=== PATIENT | female | born 1940 | race Caucasian/White ===

== ENCOUNTER → 2016-10-02 | Outpatient (REF) | payer MEDICARE ==
[~2016-10-02] MED LIST: /ALEN70TA; ALBU17IN2; BABY81CH; FLUTICASONE PROPIONATE; MIRALAX; NITR0.4S; PRIL20CA
[2016-10-02 11:03] LABS: MEAN CORPUSCULAR HEMOGLOBIN 29.3 pg (27.0-33.0); MEAN CORPUSCULAR HGB CONC 32.7 g/dl (32.0-36.5); MEAN CORPUSCULAR VOLUME 89.5 fl (80.0-96.0); RED CELL DISTRIBUTION WIDTH 12.8 % (11.5-14.5); WHITE BLOOD COUNT 7.4 K/mm3 (4.0-10.0)
[2016-10-02 11:20] LABS: ALBUMIN 3.5 GM/DL (3.2-5.2); ALBUMIN/GLOBULIN RATIO 1.21 (1.00-1.93); ALKALINE PHOSPHATASE 106 U/L (45-117); ALT/SGPT 18 U/L (12-78); ANION GAP 6 MEQ/L (8-16); AST/SGOT 15 U/L (15-37); BILIRUBIN,TOTAL 0.8 MG/DL (0.2-1.0); BLOOD UREA NITROGEN 13 MG/DL (7-18); CALCIUM LEVEL 8.7 MG/DL (8.8-10.2); CARBON DIOXIDE LEVEL 33 MEQ/L (21-32); CHLORIDE LEVEL 98 MEQ/L (98-107); CREATININE FOR GFR 0.57 MG/DL (0.55-1.02); GLOMERULAR FILTRATION RATE > 60.0 (>39); GLUCOSE, FASTING 89 MG/DL (83-110); POTASSIUM SERUM 3.9 MEQ/L (3.5-5.1); SODIUM LEVEL 137 MEQ/L (136-145); TOTAL PROTEIN 6.4 GM/DL (6.4-8.2)
== END ==
LOC: M SFHCCLAY 08:38
PROVIDERS: ATTEND Family Medicine
DX: I10 Essential (primary) hypertension (principal); J45.909 Unspecified asthma, uncomplicated

== ENCOUNTER → 2017-07-23 | Outpatient (CLI) | payer MEDICARE ==
--- NOTE | 2017-07-23 11:21 | REP ---
Digital screening bilateral mammography with CAD: Comparison mammography is reviewed from July 17, 2016, July 12, 2015, and July 08, 2014. Mammographic findings: There is a 7 mm microlobulated developing nodule projecting in the lateral aspect of the right mid breast which merits further evaluation. Breast parenchyma is otherwise predominately fat replaced bilaterally. No other dominant density is seen. No spiculation or microcalcification is observed. No worrisome skin change is seen. Impression: BIRADS category 0 incomplete. Additional imaging and/or prior images needed. BI-RADS/ACR category 0 mammogram, incomplete. Additional imaging and/or prior mammograms for comparison. There is a 6 mm developing nodular density in the right breast lateral aspect at approximately 9 o'clock which merits further evaluation. Diagnostic right breast mammography and focused right breast sonography recommended. This mammogram was interpreted with the aid of an FDA-approved computer-aided detection system. The patient states she had a clinical breast exam in July 15, 2017 The patient letter being requested is m0.
== END ==
LOC: M WHC 09:10
PROVIDERS: ATTEND Nurse Practitioner Women's Health
DX: Z01.419 Encounter for gynecological examination (general) (routine) without abnormal findings (principal); Z12.31 Encounter for screening mammogram for malignant neoplasm of breast; R92.8 Other abnormal and inconclusive findings on diagnostic imaging of breast; N63.11 Unspecified lump in the right breast, upper outer quadrant
CPT/HCPCS: G0101; G0202

== ENCOUNTER → 2017-07-24 | Outpatient (CLI) | payer MEDICARE ==
--- NOTE | 2017-07-24 15:54 | REP ---
Mammography study from July 23, 2017 was BI-RADS category 0 because of a possible developing nodular density 6 mm in diameter in the right lateral breast. Diagnostic imaging was recommended. Comparison is also made with prior mammography from July 17, 2016 and July 12, 2015. Mammographic findings: Magnified focal spot compression CC, MLO, and true ML views of the right breast confirm the presence of a nodular density. This has a hilar notch and kidney jaimes shape consistent with a benign intramammary lymph node. It is located laterally and just inferior to the plane of the nipple in the inferolateral quadrant of the right breast. No other suspicious mammographic finding. Sonographic findings: The right breast is scanned from 5 o'clock to 10 o'clock laterally. Normal fairly homogeneous fibroglandular background echotexture is seen. No cyst, mass or acoustic shadowing is seen. Impression: BI-RADS/ACR category 2 mammogram. Benign finding(s). Routine annual screening mammography (for women over age 40). BI-RADS category 2 benign right breast imaging. Intramammary lymph node is seen laterally in the right breast on magnified focal spot compression images. Repeat annual screening mammography recommended. This mammogram was interpreted with the aid of an FDA-approved computer-aided detection system. The patient states she/he had a clinical breast exam in June of 2017. The patient letter being requested is m1. Signed by Valentino Posadas MD 07/24/2017 04:10 P
== END ==
LOC: M RAD 14:05
PROVIDERS: ATTEND Nurse Practitioner Women's Health
DX: Z12.31 Encounter for screening mammogram for malignant neoplasm of breast (principal); R92.8 Other abnormal and inconclusive findings on diagnostic imaging of breast
CPT/HCPCS: 76642; G0206

== ENCOUNTER 2017-10-01 19:20 | Emergency (ER) | payer MEDICARE ==
[2017-10-01] MEDS: BUPIVACAINE HCL 0.5% 10 ML VIAL SC ×2 (21:35)
[2017-10-01] MEDS: LIDOCAINE W/EPINEPHRINE 1% 20ML VIAL SC ×2 (21:35)
[2017-10-01] MEDS: TETANUS/DIPHTHERIA TOX ADSORB ADULT 0.5ML SYR/VIAL (90714) IM ×2 (22:29)
[2017-10-01] MEDS: traMADol 50 MG TAB (BULK 4 TAB ED) PO ×2 (22:45)
== END 2017-10-01 22:53 | disposition home or self-care (01) ==
LOC: M ED 19:20
DX: S01.111A Laceration without foreign body of right eyelid and periocular area, initial encounter (principal); S80.11XA Contusion of right lower leg, initial encounter; W00.9XXA Unspecified fall due to ice and snow, initial encounter; Y92.481 Parking lot as the place of occurrence of the external cause; Y93.9 Activity, unspecified; M85.88 Other specified disorders of bone density and structure, other site; Z79.899 Other long term (current) drug therapy; Z88.6 Allergy status to analgesic agent; Z88.0 Allergy status to penicillin
CPT/HCPCS: 90714

== ENCOUNTER → 2018-05-20 | Outpatient (CLI) | payer MEDICARE ==
[2018-05-20 07:03] LABS: HEMATOCRIT 40.2 % (36.0-47.0); HEMOGLOBIN 13.5 g/dl (12.0-15.5); MEAN CORPUSCULAR HEMOGLOBIN 29.6 pg (27.0-33.0); MEAN CORPUSCULAR HGB CONC 33.6 g/dl (32.0-36.5); MEAN CORPUSCULAR VOLUME 88.2 fl (80.0-96.0); PLATELET COUNT, AUTOMATED 372 10^3/uL (150-450); RED BLOOD COUNT 4.56 10^6/uL (4.00-5.40); WHITE BLOOD COUNT 7.3 10^3/uL (4.0-10.0)
[2018-05-20 07:34] LABS: ALBUMIN 3.7 GM/DL (3.2-5.2); ALBUMIN/GLOBULIN RATIO 1.28 (1.00-1.93); ALKALINE PHOSPHATASE 110 U/L (45-117); ALT/SGPT 19 U/L (12-78); ANION GAP 9 MEQ/L (8-16); AST/SGOT 15 U/L (7-37); BILIRUBIN,TOTAL 0.6 MG/DL (0.2-1.0); BLOOD UREA NITROGEN 14 MG/DL (7-18); CALCIUM LEVEL 9.1 MG/DL (8.8-10.2); CARBON DIOXIDE LEVEL 31 MEQ/L (21-32); CHLORIDE LEVEL 99 MEQ/L (98-107); CHOLESTEROL LEVEL 236 MG/DL (<200); CREATININE FOR GFR 0.68 MG/DL (0.55-1.30); GLOMERULAR FILTRATION RATE > 60.0 (>39); GLUCOSE, FASTING 91 MG/DL (70-100); HDL CHOLESTEROL 54 MG/DL (>40); LDL CHOLESTEROL 140 MG/DL (<100); NON-HDL-C 182 MG/DL; POTASSIUM SERUM 4.2 MEQ/L (3.5-5.1); SODIUM LEVEL 139 MEQ/L (136-145); TOTAL PROTEIN 6.6 GM/DL (6.4-8.2); TRIGLYCERIDES LEVEL 212 MG/DL (<150)
== END ==
LOC: M LAB 06:29
DX: J45.909 Unspecified asthma, uncomplicated (principal); E78.00 Pure hypercholesterolemia, unspecified; I10 Essential (primary) hypertension
CPT/HCPCS: 84443

== ENCOUNTER 2018-07-08 06:12 | Emergency (ER) | payer MEDICARE ==
[2018-07-08 06:47] LABS: BASO % 0.5 % (0.0-1.0); EOS # 0.1 10^3/uL (0.0-0.50); EOS % 1.2 % (0.0-3.0); HEMATOCRIT 39.6 % (36.0-47.0); HEMOGLOBIN 13.2 g/dl (12.0-15.5); IMMATURE GRANULOCYTE % 0.5 % (0-3.0); LYMPH # 1.5 10^3/uL (1.5-4.5); LYMPH % 18.7 % (24.0-44.0); MEAN CORPUSCULAR HEMOGLOBIN 29.6 pg (27.0-33.0); MEAN CORPUSCULAR HGB CONC 33.3 g/dl (32.0-36.5); MEAN CORPUSCULAR VOLUME 88.8 fl (80.0-96.0); MONO # 0.7 10^3/uL (0.0-0.8); MONO % 8.4 % (0.0-5.0); NEUTROPHILS # 5.8 10^3/uL (1.8-7.7); NEUTROPHILS % 70.7 % (36.0-66.0); PLATELET COUNT, AUTOMATED 347 10^3/uL (150-450); RED BLOOD COUNT 4.46 10^6/uL (4.00-5.40); RED CELL DISTRIBUTION WIDTH 13.1 % (11.5-14.5); WHITE BLOOD COUNT 8.1 10^3/uL (4.0-10.0)
[2018-07-08 07:13] LABS: ANION GAP 8 MEQ/L (8-16); BLOOD UREA NITROGEN 15 MG/DL (7-18); CALCIUM LEVEL 9.1 MG/DL (8.8-10.2); CARBON DIOXIDE LEVEL 28 MEQ/L (21-32); CHLORIDE LEVEL 100 MEQ/L (98-107); CPK CREATINE PHOSPHOKINASE 96 U/L (26-192); GLOMERULAR FILTRATION RATE > 60.0 (>39); GLUCOSE, FASTING 103 MG/DL (70-100); NT-PRO BNP 243 PG/ML (<450); POTASSIUM SERUM 3.9 MEQ/L (3.5-5.1); SODIUM LEVEL 136 MEQ/L (136-145); TROPONIN I < 0.02 NG/ML (< 0.10)
[2018-07-08] MEDS ORDERED: ISOVUE-370 76% 100ML VIAL (Q9967) As Ordered (08:06)
[2018-07-08 13:00] LABS: CPK CREATINE PHOSPHOKINASE 123 U/L (26-192); MB/CK RELATIVE INDEX 2.36 (< OR =4); TROPONIN I < 0.02 NG/ML (< 0.10)
== END 2018-07-08 13:48 | disposition home or self-care (01) ==
LOC: M ED 06:12
DX: R00.2 Palpitations (principal); R06.02 Shortness of breath; I10 Essential (primary) hypertension; E78.5 Hyperlipidemia, unspecified; K21.9 Gastro-esophageal reflux disease without esophagitis; J45.909 Unspecified asthma, uncomplicated; Z87.891 Personal history of nicotine dependence; Z88.0 Allergy status to penicillin; Z88.6 Allergy status to analgesic agent; Z79.899 Other long term (current) drug therapy; Z79.51 Long term (current) use of inhaled steroids
CPT/HCPCS: Q9967

== ENCOUNTER → 2018-07-24 | Outpatient (CLI) | payer MEDICARE | LOC: M WHC 09:40 | DX: Z12.31 Encounter for screening mammogram for malignant neoplasm of breast (principal); N63.21 Unspecified lump in the left breast, upper outer quadrant; Z80.42 Family history of malignant neoplasm of prostate | CPT/HCPCS: 77067 ==

== ENCOUNTER → 2018-08-20 | Outpatient (CLI) | payer MEDICARE ==
[~2018-08-20] MED LIST changes: +CALTTAB5 PO; +HYDR25TAB; +LATA5OPD; +MULT1CHW39 PO; +SERT-155; +STOO100C PO
[2018-08-20 10:52] LABS: FREE T4 0.78 NG/DL (0.76-1.46); THYROID STIMULATING HORMONE 4.32 uIU/ML (0.358-3.740)
== END ==
LOC: M LAB 09:52
PROVIDERS: ATTEND Family Medicine
DX: R79.89 Other specified abnormal findings of blood chemistry (principal)

== ENCOUNTER → 2018-11-06 | Outpatient (CLI) | payer MEDICARE ==
[2018-11-06 11:50] LABS: BLOOD UREA NITROGEN 15 MG/DL (7-18); CALCIUM LEVEL 9.1 MG/DL (8.8-10.2); CARBON DIOXIDE LEVEL 32 MEQ/L (21-32); CHLORIDE LEVEL 98 MEQ/L (98-107); CREATININE FOR GFR 0.71 MG/DL (0.55-1.30); FREE T4 0.91 NG/DL (0.76-1.46); GLOMERULAR FILTRATION RATE > 60.0 (>39); GLUCOSE, FASTING 86 MG/DL (70-100); POTASSIUM SERUM 4.9 MEQ/L (3.5-5.1); SODIUM LEVEL 137 MEQ/L (136-145)
== END ==
LOC: M LAB 10:17
PROVIDERS: ATTEND Family Medicine
DX: I10 Essential (primary) hypertension (principal); L65.9 Nonscarring hair loss, unspecified

== ENCOUNTER → 2019-06-12 | Outpatient (CLI) | payer MEDICARE ==
[~2019-06-12] MED LIST changes: +LATA0.0013; -LATA5OPD; +MM S100C PO; -MULT1CHW39 PO; +MULT200T7 PO; -SERT-155; +SERT50TA29; -STOO100C PO
[2019-06-12 08:48] LABS: HEMOGLOBIN 13.5 g/dl (12.0-15.5); MEAN CORPUSCULAR HEMOGLOBIN 29.9 pg (27.0-33.0); MEAN CORPUSCULAR HGB CONC 32.9 g/dl (32.0-36.5); MEAN CORPUSCULAR VOLUME 90.7 fl (80.0-96.0); PLATELET COUNT, AUTOMATED 375 10^3/uL (150-450); RED BLOOD COUNT 4.52 10^6/uL (4.00-5.40); WHITE BLOOD COUNT 6.7 10^3/uL (4.0-10.0)
[2019-06-12 09:19] LABS: ALBUMIN 3.8 GM/DL (3.2-5.2); ALT/SGPT 21 U/L (12-78); BILIRUBIN,TOTAL 0.9 MG/DL (0.2-1.0); BLOOD UREA NITROGEN 13 MG/DL (7-18); CALCIUM LEVEL 9.4 MG/DL (8.8-10.2); CARBON DIOXIDE LEVEL 32 MEQ/L (21-32); CHLORIDE LEVEL 103 MEQ/L (98-107); CHOLESTEROL LEVEL 253 MG/DL (<200); CHOLESTEROL RISK RATIO 4.015 (<5); CREATININE FOR GFR 0.73 MG/DL (0.55-1.30); GLOMERULAR FILTRATION RATE > 60.0 (>39); GLUCOSE, FASTING 99 MG/DL (70-100); HDL CHOLESTEROL 63 MG/DL (>40); LDL CHOLESTEROL 153 MG/DL (<100); NON-HDL-C 190 MG/DL; POTASSIUM SERUM 4.4 MEQ/L (3.5-5.1); SODIUM LEVEL 138 MEQ/L (136-145); TOTAL PROTEIN 7.3 GM/DL (6.4-8.2); TRIGLYCERIDES LEVEL 186 MG/DL (<150)
== END ==
LOC: M LAB 08:15
PROVIDERS: ATTEND Family Medicine
DX: J45.909 Unspecified asthma, uncomplicated (principal); Z79.899 Other long term (current) drug therapy

== ENCOUNTER → 2019-06-18 | Outpatient (CLI) | payer MEDICARE ==
--- NOTE | 2019-06-18 12:49 | REP ---
LEFT BREAST MAMMOGRAM WITH TOMOSYNTHESIS, LEFT BREAST ULTRASOUND: HISTORY: Pain and tenderness lateral left breast. No family history of breast cancer. Tyrer-Cuzick lifetime risk of breast cancer 1.7%. MLO and CC view of the left breast are performed with tomosynthesis. Comparison made with prior studies, most recent of which is 07/24/2018. Breast parenchyma is predominantly fatty replaced. No mass or clustered microcalcifications are seen. Real-time sonographic evaluation of the left breast performed in the region of pain and tenderness. No cystic or solid nodule is seen. IMPRESSION: BIRADS 1: BI-RADS/ACR category 1 mammogram. Negative Mammogram. ACR 1 negative mammogram left breast with negative left breast ultrasound. No mass or clustered microcalcifications. No mass seen mammographically or sonographically laterally in the left breast in the region of pain and tenderness. Recommend followup screening mammography right breast at the 1 year interval since the prior exam, which would be 07/24/2019 or shortly thereafter. This mammogram was interpreted with the aid of an FDA-approved computer-aided detection system. The patient states he/she had a clinical breast exam in 05/2019. The patient letter being requested is M2. Electronically Signed by Dilshad Urabn MD 06/20/2019 10:50 A
== END ==
LOC: M RAD 09:44
PROVIDERS: ATTEND Family Medicine
DX: N64.4 Mastodynia (principal)
CPT/HCPCS: 76642; 77065; G0279

== ENCOUNTER → 2019-09-08 | Outpatient (CLI) | payer MEDICARE ==
--- NOTE | 2019-09-08 16:13 | REPMRS ---
Patient History The patient states she had a clinical breast exam in August 2019.Family history of prostate cancer at age 50 or over in brother. Digital Woman Screen Mammo: September 08, 2019 - Exam #: [id number] Bilateral CC and MLO view(s) were taken. Technologist: Candace Ibrahim, Technologist Prior study comparison: June 18, 2019, left breast digital mammo diagnostic unilateral, performed at [facility]. July 24, 2018, bilateral digital woman screen mammo performed at [facility]. July 23, 2017, digital woman screen mammo performed at [facility]. July 17, 2016, digital woman screen mammo performed at [facility]. FINDINGS: There are scattered fibroglandular densities. There has been no change in the appearance of the mammogram from the prior studies. There is a mild amount of scattered fibroglandular density which is fairly symmetric. There is no interval development of dominant mass, architectural distortion, or grouped microcalcification suggestive of malignancy. 3-D tomosynthesis shows no additional findings. Assessment: BI-RADS/ACR category 1 mammogram. Negative Mammogram. Recommendation Routine screening mammogram of both breasts in 1 year (for women over age 40). This patient's Lifetime Breast Cancer Risk is estimated at 1.4 %. This mammogram was interpreted with the aid of an FDA-approved computer-aided dectection system. Electronically Signed By: Sd Posadas MD 09/08/19 [id number]
== END ==
LOC: M WHC 10:16
PROVIDERS: ATTEND Nurse Practitioner Women's Health
DX: Z12.31 Encounter for screening mammogram for malignant neoplasm of breast (principal); Z80.42 Family history of malignant neoplasm of prostate

== ENCOUNTER → 2019-12-28 | Outpatient (CLI) | payer MEDICARE ==
--- NOTE | 2019-12-28 17:21 | REP ---
RIGHT KNEE, FIVE VIEWS: Five views, right knee performed. No acute fracture or dislocation is seen. There is diffuse chondrocalcinosis, more so in the lateral joint compartment. There is minimal narrowing of the medial and lateral joint compartments. There is moderate narrowing of the lateral patellofemoral joint with subchondral sclerosis. There is mild diffuse spurring of the patella. There is spurring of the lateral femoral condyle. IMPRESSION: Degenerative changes with no acute fracture or dislocation. Electronically Signed by Dilshad Urban MD 12/29/2019 09:41 A
== END ==
LOC: M CLY 15:20
PROVIDERS: ATTEND Family Medicine
DX: M17.11 Unilateral primary osteoarthritis, right knee (principal); M11.261 Other chondrocalcinosis, right knee; M25.561 Pain in right knee

== ENCOUNTER → 2020-05-18 | Outpatient (CLI) | payer MEDICARE ==
[~2020-05-18] MED LIST changes: +E-Z-GAS II EFFERVESCENT PACKET (SODIUM BICARB./CITRIC ACID/SIMETHICONE) As Ordered ONE; +E-Z-HD 98% w/w 340GM SUSP BTL As Ordered ONE; +E-Z-PAQUE 96% w/w SUSP 176GM BTL As Ordered ONE
--- NOTE | 2020-05-26 07:39 | REP ---
ESOPHAGRAM This procedure was performed by SUISE Vega, under the direct supervision of Dr. Urban. The images were reviewed with Dr. Urban prior to dictation. A single PA chest x-ray is submitted as a laborer cheesemaking film. The superior mediastinal structures are midline. The heart size is within normal limits, and the lungs appear clear. A surgical staple is visualized in the right upper quadrant. Liquid barium and gas-producing granules were given in the erect position, as well as liquid barium in the prone oblique positions in order to perform a double-contrast esophagram examination. The oral and pharyngeal stages of deglutition were unremarkable. Esophageal transport is prompt and efficient, and there is no esophagitis, stricture, or mucosal ring. Gastroesophageal reflux was not visualized during this exam. There is a small hiatal hernia. IMPRESSION: 1. Small hiatal hernia. 0.4 minutes of fluoroscopy time was utilized for this procedure. This procedure has been dictated by SUSIE Vega with Dr. Urban. [facility]
== END ==
LOC: M RAD 08:17
PROVIDERS: ATTEND Family Medicine
DX: R13.10 Dysphagia, unspecified (principal)

== ENCOUNTER → 2020-05-26 | Outpatient (CLI) | payer MEDICARE ==
[~2020-05-26] MED LIST changes: -E-Z-GAS II EFFERVESCENT PACKET (SODIUM BICARB./CITRIC ACID/SIMETHICONE) As Ordered ONE; -E-Z-HD 98% w/w 340GM SUSP BTL As Ordered ONE; -E-Z-PAQUE 96% w/w SUSP 176GM BTL As Ordered ONE
--- NOTE | 2020-06-02 06:15 | REP ---
RIGHT KNEE SERIES: 5-VIEWS HISTORY: Progressive right knee pain. History of recent falls. COMPARISON: Right knee radiographs 12/28/2019. FINDINGS: Chondrocalcinosis is again noted in the lateral compartment. There is mild lateral compartment spur formation. There is patellofemoral narrowing and osteoarthritic spurring as well. There is some sclerosis associated with this. There is a small ossific density inferior to the patella on the lateral radiograph unchanged from the prior study. This is not seen on the other views. Loose body is felt to be unlikely. It projects over the infrapatellar fat and there is no evidence of joint effusion. IMPRESSION: Mild lateral and patellofemoral compartment osteoarthritis. Diffuse osteopenia. Chondrocalcinosis. No acute bony abnormality. MTDD
== END ==
LOC: M CLY 13:55
PROVIDERS: ATTEND Physician Assistant
DX: M17.11 Unilateral primary osteoarthritis, right knee (principal); M85.88 Other specified disorders of bone density and structure, other site; M11.261 Other chondrocalcinosis, right knee
CPT/HCPCS: 73564; G0463

== ENCOUNTER → 2020-09-09 | Outpatient (CLI) | payer MEDICARE ==
[~2020-09-09] MED LIST changes: +HYDR-3490; -HYDR25TAB
--- NOTE | 2020-09-09 14:03 | REPMRS ---
Patient History The patient states she has not had a clinical breast exam in over a year. Family history of prostate cancer at age 50 or over in brother. 3D TOMOSYNTHESIS WAS PERFORMED. [facility]%. Volpara breast density a. Digital Woman Screen Mammo: September 09, 2020 - Exam #: [id number] Bilateral CC and MLO view(s) were taken. Technologist: Anabel Oleary, Technologist Prior study comparison: September 08, 2019, bilateral digital woman screen mammo performed at [facility]. June 18, 2019, left breast digital mammo diagnostic unilateral, performed at [facility]. FINDINGS: There are scattered fibroglandular densities. There has been no change in the appearance of the mammogram from the prior studies. There is a mild amount of residual fibroglandular tissue which is fairly symmetric. There is no interval development of dominant mass, architectural distortion, or clustered microcalcification suggestive of malignancy. Assessment: BI-RADS/ACR category 1 mammogram. Negative Mammogram. Recommendation Routine screening mammogram in 1 year (for women over age 40). This mammogram was interpreted with the aid of an FDA-approved computer-aided dectection system. Electronically Signed By: Dilshad Urban MD 09/09/20 [id number]
== END ==
LOC: M WHC 12:53
PROVIDERS: ATTEND Nurse Practitioner Women's Health
DX: Z12.31 Encounter for screening mammogram for malignant neoplasm of breast (principal)

== ENCOUNTER → 2020-11-10 | Outpatient (REF) | payer MEDICARE ==
[2020-11-11 11:33] LABS: HEMATOCRIT 37.9 % (36.0-47.0); HEMOGLOBIN 12.4 g/dl (12.0-15.5); MEAN CORPUSCULAR HEMOGLOBIN 30.1 pg (27.0-33.0); MEAN CORPUSCULAR HGB CONC 32.7 g/dl (32.0-36.5); PLATELET COUNT, AUTOMATED 383 10^3/uL (150-450); RED BLOOD COUNT 4.12 10^6/uL (4.00-5.40); WHITE BLOOD COUNT 7.7 10^3/uL (4.0-10.0)
[2020-11-11 11:59] LABS: ALBUMIN 3.7 GM/DL (3.2-5.2); ALT/SGPT 16 U/L (12-78); BILIRUBIN,TOTAL 0.6 MG/DL (0.2-1.0); BLOOD UREA NITROGEN 16 MG/DL (7-18); CALCIUM LEVEL 9.2 MG/DL (8.8-10.2); CARBON DIOXIDE LEVEL 31 MEQ/L (21-32); CHLORIDE LEVEL 98 MEQ/L (98-107); CREATININE FOR GFR 0.61 MG/DL (0.55-1.30); GLOMERULAR FILTRATION RATE > 60.0 (>32); GLUCOSE, FASTING 98 MG/DL (70-100); SODIUM LEVEL 133 MEQ/L (136-145); TOTAL PROTEIN 6.6 GM/DL (6.4-8.2)
== END ==
LOC: M SFHCCLAY 14:28
PROVIDERS: ATTEND Family Medicine
DX: J45.909 Unspecified asthma, uncomplicated (principal); I10 Essential (primary) hypertension
CPT/HCPCS: 80053; 85027; G0463

== ENCOUNTER → 2021-01-09 | Outpatient (CLI) | payer MEDICARE ==
--- NOTE | 2021-01-09 13:44 | REP ---
INDICATION: RT CAROTID BRUIT COMPARISON: None. TECHNIQUE: Real-time ultrasound evaluation and duplex Doppler interrogation of the extracranial carotid vasculature is performed. FINDINGS: There is mild plaquing and narrowing in both carotid bulbs extending into the internal and external carotid arteries. Luminal narrowing is less than 50%. There is no evidence of hemodynamically significant stenosis of either internal carotid artery. Normal flow velocities are seen. The vertebral arteries demonstrate normal direction of flow. RIGHT LEFT Peak systolic velocity ICA 41.7 cm/s 55.3 cm/s End diastolic velocity ICA 10.7 cm/s 16.3 cm/s Peak systolic velocity CCA 87.9 cm/s 85.9cm/s Peak systolic velocity ECA 46.7 cm/s 45.0 cm/s ICA/CCA ratio 0.90 0.82 IMPRESSION: Bilateral luminal narrowing of the internal carotid arteries less than 50%. No evidence of hemodynamically significant stenosis. <Electronically signed by Dilshad Urban > 01/09/21 [id number]
== END ==
LOC: M RAD 12:09
PROVIDERS: ATTEND Family Medicine
DX: R09.89 Other specified symptoms and signs involving the circulatory and respiratory systems (principal)

== ENCOUNTER → 2021-10-31 | Outpatient (CLI) | payer MEDICARE | LOC: M WHC 12:41 | PROVIDERS: ATTEND Nurse Practitioner Women's Health | DX: Z12.31 Encounter for screening mammogram for malignant neoplasm of breast (principal) ==

== ENCOUNTER 2021-12-14 12:59 | Emergency (ER) | payer MEDICARE ==
[~2021-12-14] VITALS: Ht 162.6 cm; Wt 65.9 kg
[2021-12-14 13:56] LABS: BASO # 0.1 10^3/uL (0.0-0.2); BASO % 0.6 % (0.0-1.0); EOS # 0.2 10^3/uL (0.0-0.5); EOS % 1.9 % (0.0-3.0); HEMATOCRIT 38.9 % (36.0-47.0); LYMPH % 21.5 % (24.0-44.0); MEAN CORPUSCULAR HEMOGLOBIN 30.2 pg (27.0-33.0); MEAN CORPUSCULAR HGB CONC 33.4 g/dl (32.0-36.5); MEAN CORPUSCULAR VOLUME 90.5 fl (80.0-96.0); MONO # 0.7 10^3/uL (0.0-0.8); MONO % 7.3 % (2.0-8.0); NEUTROPHILS # 6.4 10^3/uL (1.5-8.5); NEUTROPHILS % 68.4 % (36.0-66.0); PLATELET COUNT, AUTOMATED 401 10^3/uL (150-450); WHITE BLOOD COUNT 9.3 10^3/uL (4.0-10.0)
[2021-12-14 14:06] LABS: CK-MB VALUE MASS 2.5 NG/ML (<3.6); MB/CK RELATIVE INDEX 3.62 (< OR =4)
[2021-12-14 14:09] LABS: INR 0.94
[2021-12-14 14:10] LABS: PARTIAL THROMBOPLASTIN TIME 29.8 SECONDS (25.9-37.0)
[2021-12-14 14:13] LABS: ALBUMIN 3.6 GM/DL (3.2-5.2); ALT/SGPT 22 U/L (12-78); BILIRUBIN,DIRECT 0.1 MG/DL (0.0-0.2); BILIRUBIN,TOTAL 0.5 MG/DL (0.2-1.0); BLOOD UREA NITROGEN 13 MG/DL (7-18); CALCIUM LEVEL 9.2 MG/DL (8.8-10.2); CARBON DIOXIDE LEVEL 29 MEQ/L (21-32); CHLORIDE LEVEL 99 MEQ/L (98-107); CREATININE FOR GFR 0.68 MG/DL (0.55-1.30); GLOMERULAR FILTRATION RATE > 60.0 (>32); GLUCOSE, FASTING 127 MG/DL (70-100); NT-PRO BNP 94 PG/ML (<450); POTASSIUM SERUM 3.7 MEQ/L (3.5-5.1); SODIUM LEVEL 133 MEQ/L (136-145); TOTAL PROTEIN 6.7 GM/DL (6.4-8.2)
[2021-12-14] MEDS ORDERED: ISOVUE-370 76% 100ML VIAL As Ordered ONE (15:16)
[2021-12-14] MEDS ORDERED: GI COCKTAIL 50ML BTL(HYOSCYAMINE/MAALOX/LIDOCAINE VISCOUS)(1:3:1) PO ONE (15:40)
[2021-12-14] MEDS ORDERED: HEPARIN DRIP 25,000 UNITS in IV 1 EA IV SCH (15:45)
[2021-12-14] MEDS ORDERED: ASPIRIN 81 MG CHEW TABLET PO ONE (15:45)
[2021-12-14] MEDS ORDERED: NITROGLYCERIN 0.4 MG SUBL TABLET SL PRN (15:45)
[2021-12-14] MEDS ORDERED: HEPARIN SOD (PORCINE) 5000UNITS/ML 1ML VIAL/SYRINGE IV ONE (15:45)
[2021-12-14 15:46] LABS: CK-MB VALUE MASS 2.1 NG/ML (<3.6); MB/CK RELATIVE INDEX 3.04 (< OR =4)
[2021-12-14] MEDS ORDERED: NITROGLYCERIN 2% OINT 1 GM *U/D* PKT TOP ONE (16:00)
[2021-12-14 16:22] LABS: RSV AMPLIFICATION NEGATIVE (NEGATIVE)
[2021-12-14 19:46] VITALS: BP 153/66
== END 2021-12-14 20:05 | disposition short-term general hospital (02) ==
LOC: M ED 12:59
DX: I20.0 Unstable angina (principal); R94.31 Abnormal electrocardiogram [ECG] [EKG]; I10 Essential (primary) hypertension; F41.8 Other specified anxiety disorders; F32.A Depression, unspecified; J45.909 Unspecified asthma, uncomplicated; K44.9 Diaphragmatic hernia without obstruction or gangrene; K21.9 Gastro-esophageal reflux disease without esophagitis; F17.200 Nicotine dependence, unspecified, uncomplicated; Z88.0 Allergy status to penicillin; Z88.6 Allergy status to analgesic agent
CPT/HCPCS: 71045; 71275; 80048; 80076; 82550; 82553; 83880; 84443; 84484; 85025; 85610; 85730; 87631; 93005; 93041; 94760; 96374; 99285; J1644; Q9967

== ENCOUNTER 2022-06-11 09:59 | Emergency (ER) | payer OTHER, MEDICARE ==
[~2022-06-11] VITALS: Ht 162.6 cm; Wt 64.1 kg
[2022-06-11] MEDS ORDERED: ACETAMINOPHEN 325 MG TAB PO ONE (10:30)
[2022-06-11 11:14] VITALS: BP 174/94
[2022-06-11 11:20] LABS: BASO # 0.1 10^3/uL (0.0-0.2); BASO % 0.5 % (0.0-1.0); EOS % 0.3 % (0.0-3.0); HEMATOCRIT 37.2 % (36.0-47.0); HEMOGLOBIN 12.7 g/dl (12.0-15.5); LYMPH # 1.5 10^3/uL (1.5-5.0); LYMPH % 14.1 % (24.0-44.0); MEAN CORPUSCULAR HEMOGLOBIN 30.7 pg (27.0-33.0); MEAN CORPUSCULAR HGB CONC 34.1 g/dl (32.0-36.5); MEAN CORPUSCULAR VOLUME 89.9 fl (80.0-96.0); MONO # 0.8 10^3/uL (0.0-0.8); MONO % 7.6 % (2.0-8.0); NEUTROPHILS # 7.9 10^3/uL (1.5-8.5); NEUTROPHILS % 76.3 % (36.0-66.0); PLATELET COUNT, AUTOMATED 391 10^3/uL (150-450); RED BLOOD COUNT 4.14 10^6/uL (4.00-5.40); WHITE BLOOD COUNT 10.4 10^3/uL (4.0-10.0)
[2022-06-11 11:30] LABS: INR 0.9; PARTIAL THROMBOPLASTIN TIME 27.6 SECONDS (24.8-34.2); PROTHROMBIN TIME 12.3 SECONDS (12.5-14.5)
[2022-06-11] MEDS ORDERED: CLOP75TA2 PO (11:40)
[2022-06-11 11:52] LABS: RSV AMPLIFICATION NEGATIVE (NEGATIVE)
[2022-06-11 12:02] LABS: ALBUMIN 4.1 GM/DL (3.2-5.2); ALT/SGPT 24 U/L (12-78); BLOOD UREA NITROGEN 12 MG/DL (7-18); CALCIUM LEVEL 9.1 MG/DL (8.8-10.2); CARBON DIOXIDE LEVEL 28 MEQ/L (21-32); CHLORIDE LEVEL 97 MEQ/L (98-107); CREATININE FOR GFR 0.57 MG/DL (0.55-1.30); GLOMERULAR FILTRATION RATE > 60.0 (>32); GLUCOSE, FASTING 132 MG/DL (70-100); POTASSIUM SERUM 3.3 MEQ/L (3.5-5.1); SODIUM LEVEL 132 MEQ/L (136-145); TOTAL PROTEIN 7.2 GM/DL (6.4-8.2)
[2022-06-11 15:07] LABS: CPK CREATINE PHOSPHOKINASE 155 U/L (26-192)
== END 2022-06-11 12:42 | disposition short-term general hospital (02) ==
LOC: M ED 09:59 → EDBD 09:59 → M ED 12:42
DX: S20.211A Contusion of right front wall of thorax, initial encounter (principal); S12.101A Unspecified nondisplaced fracture of second cervical vertebra, initial encounter for closed fracture; I10 Essential (primary) hypertension; V49.50XA Passenger injured in collision with unspecified motor vehicles in traffic accident, initial encounter; Z88.0 Allergy status to penicillin; Z88.6 Allergy status to analgesic agent; Z79.83 Long term (current) use of bisphosphonates; Z79.899 Other long term (current) drug therapy; Y99.9 Unspecified external cause status; Y92.9 Unspecified place or not applicable; Y93.9 Activity, unspecified

== ENCOUNTER → 2022-11-01 | Outpatient (CLI) | payer MEDICARE ==
[~2022-11-01] MED LIST changes: +CLOP75TA2 PO
== END ==
LOC: M WHC 10:23
PROVIDERS: ATTEND Family Medicine
DX: Z12.31 Encounter for screening mammogram for malignant neoplasm of breast (principal)

== ENCOUNTER → 2022-11-16 | Outpatient (CLI) | payer MEDICARE ==
[2022-11-16 14:47] LABS: BLOOD UREA NITROGEN 13 MG/DL (9-23); CALCIUM LEVEL 9.3 MG/DL (8.3-10.6); CARBON DIOXIDE LEVEL 30 MMOL/L (20-31); CHLORIDE LEVEL 100 MMOL/L (98-107); CREATININE FOR GFR 0.59 MG/DL (0.55-1.30); GLOMERULAR FILTRATION RATE > 60.0 (>32); GLUCOSE, FASTING 89 MG/DL (74-106); POTASSIUM SERUM 4.4 MMOL/L (3.5-5.1); SODIUM LEVEL 136 MMOL/L (136-145)
== END ==
LOC: M LAB 12:26
PROVIDERS: ATTEND Family Medicine
DX: I48.0 Paroxysmal atrial fibrillation (principal)

== ENCOUNTER → 2023-06-03 | Outpatient (CLI) | payer MEDICARE | LOC: M WUC 10:43 | PROVIDERS: ATTEND Student in an Organized Health Care Education/Training Program | DX: M54.50 Low back pain, unspecified (principal); M47.896 Other spondylosis, lumbar region ==

== ENCOUNTER → 2023-06-11 | Outpatient (CLI) | payer MEDICARE | LOC: M SLEEP HO 10:53 | PROVIDERS: ATTEND Internal Medicine Critical Care Medicine | DX: G47.30 Sleep apnea, unspecified (principal) ==

== ENCOUNTER 2023-11-07 12:06 | Emergency (ER) | payer MEDICARE ==
[~2023-11-07] VITALS: Ht 162.6 cm; Wt 64.5 kg
[2023-11-07] MEDS ORDERED: OMEP40CA4 PO (12:32)
[2023-11-07] MEDS ORDERED: ELIQ5TAB PO (12:32)
[2023-11-07] MEDS ORDERED: NORV5TAB PO (12:32)
[2023-11-07] MEDS ORDERED: FLUT12AE2 IH (12:32)
[2023-11-07] MEDS ORDERED: VALS40TA9 PO (12:32)
[2023-11-07 15:35] VITALS: BP 173/72; TEMP 98.3; O2SAT 98
== END 2023-11-07 15:40 | disposition home or self-care (01) ==
LOC: M ED 12:06
DX: F41.9 Anxiety disorder, unspecified (principal); F32.A Depression, unspecified; M25.562 Pain in left knee; M25.561 Pain in right knee; W19.XXXA Unspecified fall, initial encounter; J45.909 Unspecified asthma, uncomplicated; I10 Essential (primary) hypertension; Z86.79 Personal history of other diseases of the circulatory system; Z79.01 Long term (current) use of anticoagulants; Z88.0 Allergy status to penicillin; Z88.6 Allergy status to analgesic agent; Y92.009 Unspecified place in unspecified non-institutional (private) residence as the place of occurrence of the external cause; Y93.9 Activity, unspecified; Y99.9 Unspecified external cause status; Z79.52 Long term (current) use of systemic steroids; Z79.83 Long term (current) use of bisphosphonates; Z79.899 Other long term (current) drug therapy

== ENCOUNTER → 2023-11-13 | Outpatient (REF) | payer MEDICARE, OTHER ==
[~2023-11-13] MED LIST changes: +ELIQ5TAB PO; +FLUT12AE2 IH; +NORV5TAB PO; +OMEP40CA4 PO; +VALS40TA9 PO
[2023-11-13 18:08] LABS: BASO % 0.4 % (0.0-1.0); EOS # 0.1 10^3/uL (0.0-0.5); EOS % 0.8 % (0.0-3.0); HEMATOCRIT 40.4 % (36.0-47.0); HEMOGLOBIN 13.4 g/dl (12.0-15.5); LYMPH # 2.1 10^3/uL (1.5-5.0); LYMPH % 18.7 % (24.0-44.0); MEAN CORPUSCULAR HEMOGLOBIN 30.7 pg (27.0-33.0); MEAN CORPUSCULAR HGB CONC 33.2 g/dl (32.0-36.5); MEAN CORPUSCULAR VOLUME 92.4 fl (80.0-96.0); MONO # 1.1 10^3/uL (0.0-0.8); MONO % 9.5 % (2.0-8.0); NEUTROPHILS # 7.7 10^3/uL (1.5-8.5); NEUTROPHILS % 69.7 % (36.0-66.0); PLATELET COUNT, AUTOMATED 418 10^3/uL (150-450); RED BLOOD COUNT 4.37 10^6/uL (4.00-5.40)
[2023-11-13 18:31] LABS: ALKALINE PHOSPHATASE 118 U/L (46-116); ALT/SGPT 20 U/L (7.0-40); AST/SGOT 13 U/L (<34); BILIRUBIN,TOTAL 1.1 MG/DL (0.3-1.2); BLOOD UREA NITROGEN 15 MG/DL (9-23); CALCIUM LEVEL 9.7 MG/DL (8.3-10.6); CARBON DIOXIDE LEVEL 30 MMOL/L (20-31); CHLORIDE LEVEL 96 MMOL/L (98-107); CHOLESTEROL LEVEL 140 MG/DL (<200); CHOLESTEROL RISK RATIO 2.38 (<5); CREATININE FOR GFR 0.57 MG/DL (0.55-1.30); GLOMERULAR FILTRATION RATE > 60.0 (>32); GLUCOSE, FASTING 93 MG/DL (74-106); HDL CHOLESTEROL 58.8 MG/DL (>40); NON-HDL-C 81.2 MG/DL; POTASSIUM SERUM 4.1 MMOL/L (3.5-5.1); SODIUM LEVEL 133 MMOL/L (136-145); TOTAL PROTEIN 6.8 G/DL (5.7-8.2); TRIGLYCERIDES LEVEL 131 MG/DL (<150)
== END ==
LOC: M SFHCCLAY 11:12
PROVIDERS: ATTEND Family Medicine
DX: I48.19 Other persistent atrial fibrillation (principal); Z95.5 Presence of coronary angioplasty implant and graft; I25.10 Atherosclerotic heart disease of native coronary artery without angina pectoris

== ENCOUNTER → 2023-11-18 | Outpatient (CLI) | payer MEDICARE | LOC: M WHC 11:31 | PROVIDERS: ATTEND Family Medicine | DX: Z12.31 Encounter for screening mammogram for malignant neoplasm of breast (principal) ==

== ENCOUNTER → 2023-12-25 | Outpatient (REF) | payer MEDICARE ==
[2023-12-25 17:18] LABS: BLOOD UREA NITROGEN 17 MG/DL (9-23); CALCIUM LEVEL 8.9 MG/DL (8.3-10.6); CARBON DIOXIDE LEVEL 31 MMOL/L (20-31); CHLORIDE LEVEL 97 MMOL/L (98-107); GLOMERULAR FILTRATION RATE > 60.0 (>32); GLUCOSE, FASTING 103 MG/DL (74-106); POTASSIUM SERUM 4.6 MMOL/L (3.5-5.1); SODIUM LEVEL 133 MMOL/L (136-145)
[2023-12-25 17:40] LABS: BASO # 0.1 10^3/uL (0.0-0.2); BASO % 0.8 % (0.0-1.0); EOS # 0.1 10^3/uL (0.0-0.5); EOS % 1.4 % (0.0-3.0); HEMATOCRIT 37.7 % (36.0-47.0); LYMPH # 1.9 10^3/uL (1.5-5.0); LYMPH % 24.1 % (24.0-44.0); MEAN CORPUSCULAR HEMOGLOBIN 30.2 pg (27.0-33.0); MEAN CORPUSCULAR HGB CONC 31.8 g/dl (32.0-36.5); MEAN CORPUSCULAR VOLUME 94.7 fl (80.0-96.0); MONO # 0.9 10^3/uL (0.0-0.8); MONO % 10.8 % (2.0-8.0); NEUTROPHILS # 4.9 10^3/uL (1.5-8.5); NEUTROPHILS % 62.5 % (36.0-66.0); PLATELET COUNT, AUTOMATED 378 10^3/uL (150-450); RED BLOOD COUNT 3.98 10^6/uL (4.00-5.40); WHITE BLOOD COUNT 7.8 10^3/uL (4.0-10.0)
== END ==
LOC: M SFHCCLAY 12:03
PROVIDERS: ATTEND Family Medicine
DX: E87.1 Hypo-osmolality and hyponatremia (principal); D72.829 Elevated white blood cell count, unspecified

== ENCOUNTER 2024-05-15 05:02 | Observation (INO) | payer MEDICARE ==
[~2024-05-15] VITALS: Ht 162.6 cm; Wt 63.1 kg
[~2024-05-15 05:02] MED LIST changes: -HYDR-3490; +HYDR-3490 PO; -SERT50TA29; +SERT50TA29 PO
[2024-05-15] MEDS: METOPROLOL 5 MG/5 ML VIAL IV PRN (05:13)
[2024-05-15] MEDS: atenoloL 25 MG TAB PO ONE (05:30)
[2024-05-15] MEDS: amLODIPine 5 MG TAB PO ONE (05:53)
[2024-05-15 05:58] LABS: CK-MB VALUE MASS 1.3 NG/ML (<3.6)
[2024-05-15 06:00] LABS: BLOOD UREA NITROGEN 12 MG/DL (9-23); CALCIUM LEVEL 8.8 MG/DL (8.3-10.6); CARBON DIOXIDE LEVEL 25 MMOL/L (20-31); CHLORIDE LEVEL 100 MMOL/L (98-107); GLOMERULAR FILTRATION RATE > 60.0 (>32); GLUCOSE, FASTING 132 MG/DL (74-106); POTASSIUM SERUM 3.6 MMOL/L (3.5-5.1); SODIUM LEVEL 130 MMOL/L (136-145)
[2024-05-15 06:07] LABS: CPK CREATINE PHOSPHOKINASE 64 U/L (34-145); MB/CK RELATIVE INDEX 2.03 (< OR =4)
[2024-05-15 06:53] LABS: BASO # 0.1 10^3/uL (0.0-0.2); BASO % 0.5 % (0.0-1.0); EOS # 0.1 10^3/uL (0.0-0.5); EOS % 0.5 % (0.0-3.0); HEMATOCRIT 35.9 % (36.0-47.0); HEMOGLOBIN 12.1 g/dl (12.0-15.5); LYMPH # 1.4 10^3/uL (1.5-5.0); LYMPH % 12.3 % (24.0-44.0); MEAN CORPUSCULAR HEMOGLOBIN 30.9 pg (27.0-33.0); MEAN CORPUSCULAR HGB CONC 33.7 g/dl (32.0-36.5); MEAN CORPUSCULAR VOLUME 91.6 fl (80.0-96.0); MONO # 0.8 10^3/uL (0.0-0.8); NEUTROPHILS # 9.1 10^3/uL (1.5-8.5); NEUTROPHILS % 79.4 % (36.0-66.0); PLATELET COUNT, AUTOMATED 333 10^3/uL (150-450); RED BLOOD COUNT 3.92 10^6/uL (4.00-5.40); WHITE BLOOD COUNT 11.5 10^3/uL (4.0-10.0)
[2024-05-15 06:56] LABS: THYROID STIMULATING HORMONE 2.287 uIU/ML (0.55-4.78)
[2024-05-15 07:03] LABS: CK-MB VALUE MASS 1.2 NG/ML (<3.6); MB/CK RELATIVE INDEX 1.25 (< OR =4)
[2024-05-15 07:06] LABS: INR 1.16; PROTHROMBIN TIME 14.4 SECONDS (12.5-14.5)
[2024-05-15] MEDS ORDERED: METO1TAB32 PO (07:49)
[2024-05-15] MEDS ORDERED: VENTAER INH (07:49)
[2024-05-15] MEDS ORDERED: XALA0.007 OD (07:49)
[2024-05-15] MEDS ORDERED: AMLO2.5T3 PO (07:49)
[2024-05-15] MEDS ORDERED: ARNU1INH INH (07:49)
[2024-05-15] MEDS ORDERED: FLUTISP NARES (07:49)
[2024-05-15] MEDS ORDERED: THERTAB52 PO (07:49)
[2024-05-15] MEDS ORDERED: ATOR40TA75 PO (07:51)
[2024-05-15] MEDS ORDERED: OMEP20TA17 PO (07:53)
[2024-05-15] MEDS ORDERED: HOME MED LIST COMPLETE! XX SCH (07:55)
[2024-05-15] MEDS ORDERED: ALBUTEROL 90 MCG/ACT 8GM HFA INHALER INH PRN (08:55)
[2024-05-15] MEDS ORDERED: ACETAMINOPHEN TAB 650MG DOSE (2X325MG) PO PRN (08:55)
[2024-05-15] MEDS ORDERED: FLUTICASONE PROP 0.05% NASAL SPRAY 16 GM (FLONASE) NARES PRN (08:55)
[2024-05-15 09:44] LABS: INR 1.18; PARTIAL THROMBOPLASTIN TIME 30.7 SECONDS (24.8-34.2); PROTHROMBIN TIME 14.7 SECONDS (12.5-14.5)
[2024-05-15] MEDS: SERTRALINE HCL 50 MG TAB PO SCH (09:47)
[2024-05-15] MEDS: DOCUSATE SODIUM 100MG CAPSULE PO SCH (09:47)
[2024-05-15] MEDS: OMEPRAZOLE 20MG CAP PO SCH (09:47)
[2024-05-15] MEDS: ATORVASTATIN 20 MG TAB PO SCH (09:47)
[2024-05-15] MEDS: APIXABAN 5 MG TAB (ELIQUIS) PO SCH (09:47)
[2024-05-15] MEDS: VALSARTAN 40MG TABLET (DIOVAN) PO SCH (09:59)
[2024-05-15] MEDS: METOPROLOL TART 25 MG TABLET PO SCH ×2 (11:54→17:47)
[2024-05-15] MEDS: NS 1,000 ML IV SCH (13:16)
[2024-05-15] MEDS: ONDANSETRON 4MG TAB PO PRN (17:04)
[2024-05-15] MEDS: DIGOXIN INJ 0.5 MG/2 ML AMP IV ONE (17:04)
[2024-05-15] MEDS ORDERED: PILL CUTTER 1 EACH XX ONE (17:42)
[2024-05-15 19:47] VITALS: BP 150/71; TEMP 98.1; O2SAT 93
[2024-05-15] MEDS: LATANOPROST 0.005% OPHTH SOLN 2.5 ML OD SCH (21:11)
[2024-05-16 03:55] VITALS: BP 139/73; TEMP 98.1; O2SAT 95
[2024-05-16 06:30] LABS: HEMATOCRIT 30.9 % (36.0-47.0); HEMOGLOBIN 10.7 g/dl (12.0-15.5); MEAN CORPUSCULAR HEMOGLOBIN 31.4 pg (27.0-33.0); MEAN CORPUSCULAR HGB CONC 34.6 g/dl (32.0-36.5); MEAN CORPUSCULAR VOLUME 90.6 fl (80.0-96.0); PLATELET COUNT, AUTOMATED 300 10^3/uL (150-450); RED BLOOD COUNT 3.41 10^6/uL (4.00-5.40); WHITE BLOOD COUNT 9.7 10^3/uL (4.0-10.0)
[2024-05-16 06:56] LABS: ALBUMIN 3.1 G/DL (3.2-5.2); ALKALINE PHOSPHATASE 99 U/L (46-116); ALT/SGPT 19 U/L (7.0-40); AST/SGOT 15 U/L (<34); BILIRUBIN,TOTAL 1.6 MG/DL (0.3-1.2); BLOOD UREA NITROGEN 12 MG/DL (9-23); CALCIUM LEVEL 8.4 MG/DL (8.3-10.6); CARBON DIOXIDE LEVEL 24 MMOL/L (20-31); CHLORIDE LEVEL 98 MMOL/L (98-107); GLOMERULAR FILTRATION RATE > 60.0 (>32); GLUCOSE, FASTING 91 MG/DL (74-106); POTASSIUM SERUM 3.2 MMOL/L (3.5-5.1); SODIUM LEVEL 128 MMOL/L (136-145); TOTAL PROTEIN 5.4 G/DL (5.7-8.2)
[2024-05-16 08:09] VITALS: BP 142/77; TEMP 98; O2SAT 95
[2024-05-16] MEDS ORDERED: DIGO0.253 PO (08:38)
[2024-05-16] MEDS: METOPROLOL TART 25 MG TABLET PO SCH (08:43)
[2024-05-16 08:44] VITALS: BP 142/77
[2024-05-16] MEDS: DIGOXIN 0.25 MG TAB PO SCH (08:44)
[2024-05-16] MEDS: POTASSIUM CHLORIDE 10MEQ SR TABLET PO ONE ×2 (09:06→10:37)
== END 2024-05-16 12:39 | disposition home or self-care (01) ==
LOC: M ED 05:02 → EDBD 05:02 → M ED INP 08:55 → INTOOBSV 08:55 → M PCU 17:37
PROVIDERS: ADMIT Internal Medicine; ATTEND Internal Medicine
DX: I48.0 Paroxysmal atrial fibrillation (principal); I10 Essential (primary) hypertension; E87.1 Hypo-osmolality and hyponatremia; E86.0 Dehydration; I25.10 Atherosclerotic heart disease of native coronary artery without angina pectoris; H93.19 Tinnitus, unspecified ear; H81.10 Benign paroxysmal vertigo, unspecified ear; K21.9 Gastro-esophageal reflux disease without esophagitis; Z98.61 Coronary angioplasty status; J45.30 Mild persistent asthma, uncomplicated; M81.0 Age-related osteoporosis without current pathological fracture; Z79.01 Long term (current) use of anticoagulants; Z79.899 Other long term (current) drug therapy; Z88.0 Allergy status to penicillin; Z88.8 Allergy status to other drugs, medicaments and biological substances
CPT/HCPCS: 36415; 71045; 80047; 80048; 80053; 82550; 82553; 84443; 84484; 85025; 85027; 85610; 85730; 93005; 93041; 94760; 96361; 96374; 96375; 96376; 97161; 99285; G0378; J1160

== ENCOUNTER → 2024-06-08 | Outpatient (CLI) | payer MEDICARE ==
[~2024-06-08] MED LIST changes: +AMLO2.5T3 PO; +ARNU1INH INH; +ATOR40TA75 PO; +DIGO0.253 PO; +FLUTISP NARES; +METO1TAB32 PO; -MULT200T7 PO; +MULT200T9 PO; +OMEP20TA17 PO; +THERTAB52 PO; +VENTAER INH; +XALA0.007 OD
== END ==
LOC: M SOG 08:05
PROVIDERS: ATTEND Physician Assistant
DX: M25.561 Pain in right knee (principal); M17.11 Unilateral primary osteoarthritis, right knee; M11.261 Other chondrocalcinosis, right knee

== ENCOUNTER → 2024-07-06 | Outpatient (CLI) | payer MEDICARE ==
[2024-07-06 11:06] LABS: BLOOD UREA NITROGEN 14 MG/DL (9-23); CALCIUM LEVEL 9.6 MG/DL (8.3-10.6); CARBON DIOXIDE LEVEL 30 MMOL/L (20-31); CHLORIDE LEVEL 102 MMOL/L (98-107); CREATININE FOR GFR 0.57 MG/DL (0.55-1.30); GLOMERULAR FILTRATION RATE > 60.0 (>32); GLUCOSE, FASTING 96 MG/DL (74-106); POTASSIUM SERUM 4.9 MMOL/L (3.5-5.1); SODIUM LEVEL 134 MMOL/L (136-145)
== END ==
LOC: M WUC 08:30
PROVIDERS: ATTEND Family Medicine
DX: I10 Essential (primary) hypertension (principal)

== ENCOUNTER → 2024-07-15 | Outpatient (CLI) | payer MEDICARE ==
[2024-07-15 13:42] LABS: HEMATOCRIT 34.5 % (36.0-47.0); HEMOGLOBIN 11.3 g/dl (12.0-15.5); MEAN CORPUSCULAR HEMOGLOBIN 31.2 pg (27.0-33.0); MEAN CORPUSCULAR HGB CONC 32.8 g/dl (32.0-36.5); MEAN CORPUSCULAR VOLUME 95.3 fl (80.0-96.0); PLATELET COUNT, AUTOMATED 346 10^3/uL (150-450); RED BLOOD COUNT 3.62 10^6/uL (4.00-5.40); WHITE BLOOD COUNT 7.3 10^3/uL (4.0-10.0)
[2024-07-15 13:48] LABS: BLOOD UREA NITROGEN 12 MG/DL (9-23); CALCIUM LEVEL 9.9 MG/DL (8.3-10.6); CARBON DIOXIDE LEVEL 30 MMOL/L (20-31); CHLORIDE LEVEL 95 MMOL/L (98-107); CREATININE FOR GFR 0.63 MG/DL (0.55-1.30); GLOMERULAR FILTRATION RATE > 60.0 (>32); GLUCOSE, FASTING 89 MG/DL (74-106); POTASSIUM SERUM 4.7 MMOL/L (3.5-5.1); SODIUM LEVEL 130 MMOL/L (136-145)
== END ==
LOC: M WUC 09:28
PROVIDERS: ATTEND Family Medicine
DX: D69.2 Other nonthrombocytopenic purpura (principal); I10 Essential (primary) hypertension

== ENCOUNTER → 2024-08-21 | Outpatient (CLI) | payer MEDICARE ==
[2024-08-21 10:27] LABS: HEMATOCRIT 35.7 % (36.0-47.0); HEMOGLOBIN 11.7 g/dl (12.0-15.5); MEAN CORPUSCULAR HEMOGLOBIN 30.6 pg (27.0-33.0); MEAN CORPUSCULAR HGB CONC 32.8 g/dl (32.0-36.5); MEAN CORPUSCULAR VOLUME 93.5 fl (80.0-96.0); PLATELET COUNT, AUTOMATED 332 10^3/uL (150-450); RED BLOOD COUNT 3.82 10^6/uL (4.00-5.40); WHITE BLOOD COUNT 6.3 10^3/uL (4.0-10.0)
[2024-08-21 10:47] LABS: LDH LACTATE DEHYDROGENASE 173 U/L (120-246)
[2024-08-21 10:48] LABS: BLOOD UREA NITROGEN 21 MG/DL (9-23); CALCIUM LEVEL 9.4 MG/DL (8.3-10.6); CARBON DIOXIDE LEVEL 29 MMOL/L (20-31); CHLORIDE LEVEL 98 MMOL/L (98-107); CREATININE FOR GFR 0.64 MG/DL (0.55-1.30); GLOMERULAR FILTRATION RATE > 60.0 (>32); GLUCOSE, FASTING 85 MG/DL (74-106); IRON (FE) 95 UG/DL (50-170); PERCENT SATURATION 30.3 % (13.2-45.0); POTASSIUM SERUM 4.2 MMOL/L (3.5-5.1); SODIUM LEVEL 132 MMOL/L (136-145); TOTAL IRON BINDING CAPACITY 314 UG/DL (250-425); VITAMIN B12 LEVEL 749 PG/ML (211-911)
[2024-08-21 10:49] LABS: FOLATE > 24.00 NG/ML (>5.4)
== END ==
LOC: M LAB 09:27
PROVIDERS: ATTEND Family Medicine
DX: D64.9 Anemia, unspecified (principal); E87.1 Hypo-osmolality and hyponatremia

== ENCOUNTER → 2024-11-02 | Outpatient (CLI) | payer MEDICARE ==
[~2024-11-02] MED LIST changes: +SPIR-10 PO
[2024-11-02 11:33] LABS: BASO % 0.5 % (0.0-1.0); EOS # 0.1 10^3/uL (0.0-0.5); HEMATOCRIT 36.6 % (36.0-47.0); HEMOGLOBIN 12.1 g/dl (12.0-15.5); LYMPH # 1.6 10^3/uL (1.5-5.0); LYMPH % 20.6 % (24.0-44.0); MEAN CORPUSCULAR HEMOGLOBIN 30.9 pg (27.0-33.0); MEAN CORPUSCULAR HGB CONC 33.1 g/dl (32.0-36.5); MEAN CORPUSCULAR VOLUME 93.4 fl (80.0-96.0); MONO # 0.7 10^3/uL (0.0-0.8); MONO % 8.4 % (2.0-8.0); NEUTROPHILS # 5.4 10^3/uL (1.5-8.5); NEUTROPHILS % 69.2 % (36.0-66.0); PLATELET COUNT, AUTOMATED 341 10^3/uL (150-450); RED BLOOD COUNT 3.92 10^6/uL (4.00-5.40); WHITE BLOOD COUNT 7.8 10^3/uL (4.0-10.0)
[2024-11-02 12:00] LABS: ALBUMIN 3.8 G/DL (3.2-5.2); ALKALINE PHOSPHATASE 83 U/L (35-104); ALT/SGPT 16 U/L (7.0-40); AST/SGOT 14 U/L (<34); BILIRUBIN,TOTAL 0.8 MG/DL (0.3-1.2); BLOOD UREA NITROGEN 15 MG/DL (9-23); CALCIUM LEVEL 9.5 MG/DL (8.3-10.6); CARBON DIOXIDE LEVEL 29 MMOL/L (20-31); CHLORIDE LEVEL 100 MMOL/L (98-107); GLOMERULAR FILTRATION RATE > 60.0 (>32); GLUCOSE, FASTING 94 MG/DL (74-106); POTASSIUM SERUM 4.8 MMOL/L (3.5-5.1); SODIUM LEVEL 137 MMOL/L (136-145); TOTAL PROTEIN 6.7 G/DL (5.7-8.2)
[2024-11-02 12:01] LABS: TOTAL 25(OH) VITAMIN D 40.4 NG/ML (20.0-100.0)
== END ==
LOC: M RAD 10:26
PROVIDERS: ATTEND Neuromusculoskeletal Medicine, Sports Medicine
DX: M17.11 Unilateral primary osteoarthritis, right knee (principal); Z79.899 Other long term (current) drug therapy

== ENCOUNTER 2024-11-17 06:57 | Observation (INO) | payer MEDICARE ==
[2024-11-17] VITALS (8 sets, daily range): BP systolic 103–166; BP diastolic 54–110; TEMP 97.3–98.1; O2SAT 92–97
[~2024-11-17] VITALS: Ht 162.6 cm; Wt 62.6 kg
[2024-11-17] MEDS ORDERED: LR 1,000 ML IV SCH (07:35)
[2024-11-17] MEDS ORDERED: MIDAZOLAM INJ 2MG/2ML VIAL IV PRN (07:50)
[2024-11-17] MEDS ORDERED: propofoL 200 MG/20 ML VIAL As Ordered ONE (07:58)
[2024-11-17] MEDS ORDERED: LIDOCAINE 2% 100MG/5ML SDV (FOR ANES.) As Ordered ONE (07:58)
[2024-11-17] MEDS ORDERED: SUGAMMADEX SODIUM 500 MG/5 ML VIAL (BRIDION) As Ordered ONE (07:58)
[2024-11-17] MEDS ORDERED: ROCURONIUM BROMIDE 50MG/5ML VIAL As Ordered ONE (07:58)
[2024-11-17] MEDS ORDERED: ONDANSETRON 4MG 2ML VIAL As Ordered ONE (07:59)
[2024-11-17] MEDS ORDERED: fentaNYL 100 MCG/2 ML INJECTION As Ordered ONE (08:22)
[2024-11-17] MEDS: fentaNYL 100 MCG/2 ML INJECTION IV PRN (08:25)
[2024-11-17] MEDS: dexAMETHasone 10MG/1ML VIAL PRES.FREE PN ONE (08:27)
[2024-11-17] MEDS: ROPIvacaine 0.5% 30ML VIAL PN ONE (08:27)
[2024-11-17] MEDS: LIDOCAINE 1% SDV 5ML VIAL PN ONE (08:27)
[2024-11-17] MEDS: VANCOMYCIN HCL 1,000 MG, VIAL MATE ADAPTER 1 EACH in NS 250 ML IV ONE (08:45)
[2024-11-17] MEDS: ceFAZolin SOD 2 GM IV ONCE IV ONE (09:14)
[2024-11-17] MEDS ORDERED: ACETAMINOPHEN 1000MG/100ML IV BAG As Ordered ONE (09:32)
[2024-11-17] MEDS ORDERED: GLYCOPYRROLATE INJ 0.2 MG/ML 2 ML VIAL As Ordered ONE (09:40)
[2024-11-17] MEDS: REK 50ML SYRINGE IA ONE (10:48)
[2024-11-17] MEDS: TRANEXAMIC ACID 100 MG/ML 10ML VIAL As Ordered ONE (10:51)
[2024-11-17] MEDS ORDERED: MORPHINE 4 MG/ML 1ML VIAL IV PRN (11:40)
[2024-11-17] MEDS ORDERED: ACETAMINOPHEN 325 MG TAB PO PRN (11:40)
[2024-11-17] MEDS ORDERED: MORPHINE 2 MG/ML 1ML VIAL IV PRN (11:40)
[2024-11-17] MEDS ORDERED: fentaNYL 100 MCG/2 ML INJECTION IV PRN (11:50)
[2024-11-17] MEDS: LR 1,000 ML IV SCH (11:50)
[2024-11-17] MEDS: HYDROMORPHONE HCL 0.5 MG/ 0.5 ML SYRINGE IV PRN (12:00)
[2024-11-17] MEDS: ONDANSETRON 4MG 2ML VIAL IV PRN ×2 (12:00→14:38)
[2024-11-17] MEDS: oxyCODONE 5MG TAB PO PRN ×2 (12:00→18:09)
[2024-11-17 13:32] LABS: HEMATOCRIT 34.7 % (36.0-47.0); HEMOGLOBIN 11.8 g/dl (12.0-15.5); MEAN CORPUSCULAR HEMOGLOBIN 30.8 pg (27.0-33.0); MEAN CORPUSCULAR VOLUME 90.6 fl (80.0-96.0); PLATELET COUNT, AUTOMATED 317 10^3/uL (150-450); RED BLOOD COUNT 3.83 10^6/uL (4.00-5.40); WHITE BLOOD COUNT 9.9 10^3/uL (4.0-10.0)
[2024-11-17 13:58] LABS: BLOOD UREA NITROGEN 18 MG/DL (9-23); CALCIUM LEVEL 9.1 MG/DL (8.3-10.6); CARBON DIOXIDE LEVEL 25 MMOL/L (20-31); CHLORIDE LEVEL 97 MMOL/L (98-107); CREATININE FOR GFR 0.67 MG/DL (0.55-1.30); GLOMERULAR FILTRATION RATE > 60.0 (>32); GLUCOSE, FASTING 137 MG/DL (74-106); SODIUM LEVEL 132 MMOL/L (136-145)
[2024-11-17] MEDS: IPRATROPIUM 0.5MG/ALBUTEROL 2.5MG INH SOL UD 3ML (DUONEB) NEB SCH (14:00)
[2024-11-17] MEDS: MORPHINE 2 MG/ML 1ML VIAL IV PRN (14:38)
[2024-11-17] MEDS ORDERED: HOME MED LIST COMPLETE! XX SCH (16:25)
[2024-11-17] MEDS: ceFAZolin SODIUM 2 GM in DEXTROSE 5% (D5W) ADV/MINI-BAG 50 ML IV SCH (17:40)
[2024-11-17] MEDS: LATANOPROST 0.005% OPHTH SOLN 2.5 ML OD SCH (20:28)
[2024-11-17] MEDS: VALSARTAN 80 MG TAB (DIOVAN) PO SCH (20:28)
[2024-11-18 04:29] VITALS: BP 140/49; TEMP 97.9; O2SAT 96
[2024-11-18 06:23] LABS: INR 1.07; PROTHROMBIN TIME 14.2 SECONDS (12.5-14.5)
[2024-11-18 06:34] LABS: HEMATOCRIT 27.6 % (36.0-47.0); MEAN CORPUSCULAR HEMOGLOBIN 30.9 pg (27.0-33.0); MEAN CORPUSCULAR HGB CONC 34.4 g/dl (32.0-36.5); MEAN CORPUSCULAR VOLUME 89.9 fl (80.0-96.0); PLATELET COUNT, AUTOMATED 272 10^3/uL (150-450); RED BLOOD COUNT 3.07 10^6/uL (4.00-5.40); WHITE BLOOD COUNT 12.5 10^3/uL (4.0-10.0)
[2024-11-18 06:36] LABS: HEMOGLOBIN 9.5 g/dl (12.0-15.5)
[2024-11-18 06:47] LABS: ALBUMIN 3.1 G/DL (3.2-5.2); ALKALINE PHOSPHATASE 64 U/L (35-104); ALT/SGPT 15 U/L (7.0-40); AST/SGOT 19 U/L (<34); BILIRUBIN,TOTAL 0.9 MG/DL (0.3-1.2); BLOOD UREA NITROGEN 21 MG/DL (9-23); CALCIUM LEVEL 8.6 MG/DL (8.3-10.6); CARBON DIOXIDE LEVEL 24 MMOL/L (20-31); CHLORIDE LEVEL 100 MMOL/L (98-107); CREATININE FOR GFR 0.62 MG/DL (0.55-1.30); GLOMERULAR FILTRATION RATE > 60.0 (>32); GLUCOSE, FASTING 100 MG/DL (74-106); PHOSPHORUS LEVEL 3.2 MG/DL (2.4-5.1); POTASSIUM SERUM 3.8 MMOL/L (3.5-5.1); SODIUM LEVEL 133 MMOL/L (136-145); TOTAL PROTEIN 5.6 G/DL (5.7-8.2)
[2024-11-18] MEDS: HYDROmorphone 4MG TABLET PO STA (07:52)
[2024-11-18] MEDS ORDERED: HYDROmorphone 4MG TABLET PO PRN (08:30)
[2024-11-18] MEDS ORDERED: HYDROmorphone 2 MG TAB PO PRN (08:30)
[2024-11-18] MEDS: DOCUSATE SODIUM 100MG CAPSULE PO SCH (09:00)
[2024-11-18] MEDS: OMEPRAZOLE 20MG CAP PO SCH (09:47)
[2024-11-18] MEDS: APIXABAN 2.5 MG TAB (ELIQUIS) PO ONE (09:48)
[2024-11-18] MEDS: METOPROLOL SUCC (TopROL XL) 50MG **XL** TAB PO SCH (09:48)
[2024-11-18] MEDS: ATORVASTATIN 20 MG TAB PO SCH (09:49)
[2024-11-18] MEDS ORDERED: traMADol 50 MG TAB PO PRN ×2 (11:05)
[2024-11-18 12:00] VITALS: BP_SYST 142; BP_SYST 158; BP_DIAS 48; BP_DIAS 58; TEMP 97.6; TEMP 98.1; O2SAT 96
[2024-11-18] MEDS: ACETAMINOPHEN 325 MG TAB PO SCH (12:55)
[2024-11-18 20:56] VITALS: BP 148/49; TEMP 97.9; O2SAT 96
[2024-11-19 05:28] VITALS: BP 148/54; TEMP 97.7; O2SAT 97
[2024-11-19 05:49] LABS: HEMATOCRIT 28.8 % (36.0-47.0); HEMOGLOBIN 9.6 g/dl (12.0-15.5); MEAN CORPUSCULAR HEMOGLOBIN 30.6 pg (27.0-33.0); MEAN CORPUSCULAR HGB CONC 33.3 g/dl (32.0-36.5); MEAN CORPUSCULAR VOLUME 91.7 fl (80.0-96.0); PLATELET COUNT, AUTOMATED 246 10^3/uL (150-450); RED BLOOD COUNT 3.14 10^6/uL (4.00-5.40); WHITE BLOOD COUNT 9.8 10^3/uL (4.0-10.0)
[2024-11-19 06:19] LABS: ALBUMIN 2.9 G/DL (3.2-5.2); ALKALINE PHOSPHATASE 60 U/L (35-104); ALT/SGPT 14 U/L (7.0-40); AST/SGOT 30 U/L (<34); BILIRUBIN,TOTAL 1.1 MG/DL (0.3-1.2); BLOOD UREA NITROGEN 17 MG/DL (9-23); CALCIUM LEVEL 8.9 MG/DL (8.3-10.6); CARBON DIOXIDE LEVEL 27 MMOL/L (20-31); CHLORIDE LEVEL 103 MMOL/L (98-107); CREATININE FOR GFR 0.59 MG/DL (0.55-1.30); GLOMERULAR FILTRATION RATE > 60.0 (>32); GLUCOSE, FASTING 97 MG/DL (74-106); SODIUM LEVEL 136 MMOL/L (136-145); TOTAL PROTEIN 5.5 G/DL (5.7-8.2)
[2024-11-19 06:50] LABS: INR 1.19; PROTHROMBIN TIME 15.4 SECONDS (12.5-14.5)
[2024-11-19] MEDS ORDERED: oxyCODONE 5MG TAB PO PRN (07:25)
[2024-11-19] MEDS: APIXABAN 2.5 MG TAB (ELIQUIS) PO SCH (08:39)
[2024-11-19 12:43] VITALS: BP 134/44; TEMP 97.5; O2SAT 100
[2024-11-19 20:36] VITALS: BP 131/45; TEMP 98.1; O2SAT 96
[2024-11-20 05:23] VITALS: BP 152/64; TEMP 97.3; O2SAT 96
[2024-11-20 08:15] VITALS: BP 125/43; TEMP 97.2; O2SAT 96
[2024-11-20 09:06] VITALS: BP 125/43
[2024-11-20 12:30] VITALS: BP 147/62; TEMP 97.9; O2SAT 97
[2024-11-20] MEDS ORDERED: TYLE650T38 PO (14:40)
[2024-11-20] MEDS ORDERED: OXYC-517 PO (14:40)
[2024-11-20] MEDS ORDERED: COLA100C5 PO (14:40)
== END 2024-11-20 15:45 | disposition home health service (06) ==
LOC: M SDC 06:57 → M MS5PR 06:58 → M SDC 16:37
PROVIDERS: ADMIT Neuromusculoskeletal Medicine, Sports Medicine; ATTEND Internal Medicine
DX: M17.11 Unilateral primary osteoarthritis, right knee (principal); I50.9 Heart failure, unspecified; I10 Essential (primary) hypertension; E78.5 Hyperlipidemia, unspecified; Z79.01 Long term (current) use of anticoagulants; J44.9 Chronic obstructive pulmonary disease, unspecified; I25.10 Atherosclerotic heart disease of native coronary artery without angina pectoris; K21.9 Gastro-esophageal reflux disease without esophagitis; Z79.51 Long term (current) use of inhaled steroids; Z79.899 Other long term (current) drug therapy; Z98.61 Coronary angioplasty status; Z88.7 Allergy status to serum and vaccine; Z88.8 Allergy status to other drugs, medicaments and biological substances; Z88.0 Allergy status to penicillin
CPT/HCPCS: 27447; 36415; 73560; 76000; 80048; 80053; 80069; 85027; 85610; 94640; 96365; 96366; 96375; 96376; 97116; 97161; 97165; 97530; 97535; C1713; C1776; G0378; J0131; J0171; J0690; J1100; J1171; J1596; J1885; J2405; J2795; J3010; J3370; S2900

== ENCOUNTER → 2024-11-27 | Outpatient (CLI) | payer MEDICARE ==
[~2024-11-27] MED LIST changes: +COLA100C5 PO; +OXYC-517 PO; +TYLE650T38 PO
== END ==
LOC: M SOG 07:49
PROVIDERS: ATTEND Physician Assistant
DX: Z96.651 Presence of right artificial knee joint (principal)

== ENCOUNTER → 2024-12-03 | Outpatient (REF) | payer MEDICARE ==
[2024-12-03 17:23] LABS: APPEARANCE, URINE CLEAR (CLEAR); BACTERIA, URINE AUTO NEGATIVE (NEGATIVE); BILIRUBIN, URINE AUTO NEGATIVE (NEGATIVE); BLOOD, URINE BLOOD NEGATIVE (NEGATIVE); COLOR, URINE YELLOW (YELLOW); GLUCOSE, URINE (UA) AUTO NEGATIVE (NEGATIVE); KETONE, URINE AUTO NEGATIVE (NEGATIVE); LEUKOCYTE ESTERASE, URINE AUTO TRACE (NEGATIVE); NITRITE, URINE AUTO NEGATIVE (NEGATIVE); PROTEIN, URINE AUTO NEGATIVE (NEGATIVE); RBC, URINE AUTO 0 /HPF (0-3); SPECIFIC GRAVITY URINE AUTO 1.018 (1.002-1.035); SQUAMOUS EPITHELIAL CELL UR AU 0 /HPF (0-6); UROBILINOGEN, URINE AUTO 0.2 mg/dL (0.0-2.0); WBC, URINE AUTO 17 /HPF (0-3)
== END ==
LOC: M SFHCCLAY 12:08
PROVIDERS: ATTEND Nurse Practitioner Family
DX: R30.0 Dysuria (principal)

== ENCOUNTER → 2024-12-25 | Outpatient (CLI) | payer MEDICARE | LOC: M SOG 07:54 | PROVIDERS: ATTEND Physician Assistant | DX: Z96.651 Presence of right artificial knee joint (principal); Z47.1 Aftercare following joint replacement surgery ==

== ENCOUNTER → 2025-01-05 | Outpatient (CLI) | payer MEDICARE | LOC: M WHC 13:54 | PROVIDERS: ATTEND Nurse Practitioner Family | DX: Z12.31 Encounter for screening mammogram for malignant neoplasm of breast (principal) ==

== ENCOUNTER → 2025-03-03 | Outpatient (REF) | payer MEDICARE ==
[2025-03-03 18:31] LABS: BASO # 0.0 10^3/uL (0.0-0.2); BASO % 0.5 % (0.0-1.0); EOS # 0.2 10^3/uL (0.0-0.5); EOS % 2.2 % (0.0-3.0); LYMPH # 2.0 10^3/uL (1.5-5.0); LYMPH % 25.3 % (24.0-44.0); MONO # 0.9 10^3/uL (0.0-0.8); MONO % 11.7 % (2.0-8.0); NEUTROPHILS # 4.7 10^3/uL (1.5-8.5); NEUTROPHILS % 60.0 % (36.0-66.0); PLATELET COUNT, AUTOMATED 346 10^3/uL (150-450)
[2025-03-03 19:01] LABS: IRON (FE) 37.0 UG/DL (50-170)
[2025-03-03 19:03] LABS: ALT/SGPT 14.0 U/L (7.0-40); AST/SGOT 15.0 U/L (<34); CALCIUM LEVEL 8.9 MG/DL (8.3-10.6); CARBON DIOXIDE LEVEL 26.0 MMOL/L (20-31); CHLORIDE LEVEL 100.0 MMOL/L (98-107); CHOLESTEROL LEVEL 101.0 MG/DL (<200); CHOLESTEROL RISK RATIO 2.08 (<5); CREATININE FOR GFR 0.86 MG/DL (0.55-1.30); GLOMERULAR FILTRATION RATE 66.2 (>32); LDL CHOLESTEROL 38.1 MG/DL (<100); NON-HDL-C 52.5 MG/DL; PERCENT SATURATION 12.3 % (13.2-45.0); POTASSIUM SERUM 4.5 MMOL/L (3.5-5.1); SODIUM LEVEL 137.0 MMOL/L (136-145); TRIGLYCERIDES LEVEL 72.0 MG/DL (<150)
== END ==
LOC: M SFHCCLAY 14:05
PROVIDERS: ATTEND Nurse Practitioner Family
DX: Z00.00 Encounter for general adult medical examination without abnormal findings (principal); F32.1 Major depressive disorder, single episode, moderate; D64.9 Anemia, unspecified; D72.829 Elevated white blood cell count, unspecified; I48.19 Other persistent atrial fibrillation; I25.10 Atherosclerotic heart disease of native coronary artery without angina pectoris; Z95.5 Presence of coronary angioplasty implant and graft; I10 Essential (primary) hypertension; M19.90 Unspecified osteoarthritis, unspecified site; J45.909 Unspecified asthma, uncomplicated; G47.33 Obstructive sleep apnea (adult) (pediatric)

== ENCOUNTER → 2025-03-03 | Outpatient (CLI) | payer MEDICARE ==
[~2025-03-03] MED LIST changes: +ACET650T61 PO; +CEFD300C PO; +DOCU100C16 PO; +PRED20TA PO; +ZITHTAB PO
== END ==
LOC: M WUC 15:11
PROVIDERS: ATTEND Nurse Practitioner Family
DX: Z00.00 Encounter for general adult medical examination without abnormal findings (principal); I25.10 Atherosclerotic heart disease of native coronary artery without angina pectoris; F32.1 Major depressive disorder, single episode, moderate; D64.9 Anemia, unspecified; D72.829 Elevated white blood cell count, unspecified; I48.19 Other persistent atrial fibrillation; Z95.5 Presence of coronary angioplasty implant and graft; I10 Essential (primary) hypertension; M19.90 Unspecified osteoarthritis, unspecified site; J45.909 Unspecified asthma, uncomplicated; Z79.01 Long term (current) use of anticoagulants; Z88.8 Allergy status to other drugs, medicaments and biological substances; Z79.899 Other long term (current) drug therapy; Z87.891 Personal history of nicotine dependence; R53.83 Other fatigue; Z88.0 Allergy status to penicillin; G47.33 Obstructive sleep apnea (adult) (pediatric)
CPT/HCPCS: 71046; 80053; 80061; 82728; 83550; 85025; G0463

== ENCOUNTER 2025-03-22 06:18 | Emergency (ER) | payer MEDICARE ==
[~2025-03-22] VITALS: Ht 162.6 cm; Wt 64.0 kg
[~2025-03-22 06:18] MED LIST changes: -ACET650T61 PO; -CEFD300C PO; -DOCU100C16 PO; -PRED20TA PO; -ZITHTAB PO
[2025-03-22 07:11] LABS: BASO # 0.0 10^3/uL (0.0-0.2); BASO % 0.6 % (0.0-1.0); EOS # 0.0 10^3/uL (0.0-0.5); EOS % 0.3 % (0.0-3.0); LYMPH # 1.0 10^3/uL (1.5-5.0); LYMPH % 14.2 % (24.0-44.0); MONO # 0.6 10^3/uL (0.0-0.8); MONO % 8.9 % (2.0-8.0); NEUTROPHILS # 5.4 10^3/uL (1.5-8.5); NEUTROPHILS % 75.4 % (36.0-66.0); PLATELET COUNT, AUTOMATED 343 10^3/uL (150-450)
[2025-03-22 07:29] LABS: CK-MB VALUE MASS 3.1 NG/ML (<3.6)
[2025-03-22 07:32] LABS: ALT/SGPT 13.0 U/L (7.0-40); AST/SGOT 17.0 U/L (<34); CALCIUM LEVEL 9.2 MG/DL (8.3-10.6); CARBON DIOXIDE LEVEL 24.0 MMOL/L (20-31); CHLORIDE LEVEL 93.0 MMOL/L (98-107); CPK CREATINE PHOSPHOKINASE 64.0 U/L (34-145); CREATININE FOR GFR 0.57 MG/DL (0.55-1.30); GLOMERULAR FILTRATION RATE 89.0 (>32); MB/CK RELATIVE INDEX 4.84 (< OR =4); POTASSIUM SERUM 4.5 MMOL/L (3.5-5.1); SODIUM LEVEL 128.0 MMOL/L (136-145)
[2025-03-22] MEDS: ONDANSETRON 4MG 2ML VIAL IV ONE (08:06)
[2025-03-22] MEDS ORDERED: IPRATROPIUM 0.5 MG/ALBUTEROL 2.5 MG INH SOL UD 3 ML NEB PRN (08:40)
[2025-03-22] MEDS ORDERED: ISOVUE-370 76% 100 ML VIAL As Ordered ONE (09:03)
[2025-03-22 10:19] VITALS: BP 196/77
[2025-03-22] MEDS: VALSARTAN 80MG TAB PO ONE (10:19)
[2025-03-22 10:20] VITALS: BP 196/77
[2025-03-22] MEDS: METOPROLOL SUCC. 50 MG *XL* TAB PO ONE (10:20)
[2025-03-22] MEDS: hydroCHLOROthiazide 25 MG TAB PO ONE (10:20)
[2025-03-22] MEDS ORDERED: ACET650T61 PO (10:25)
[2025-03-22] MEDS ORDERED: HOME MED LIST COMPLETE! XX SCH (10:25)
[2025-03-22] MEDS ORDERED: DOCU100C16 PO (10:25)
[2025-03-22 10:35] VITALS: O2SAT 97
[2025-03-22 10:45] VITALS: O2SAT 94
[2025-03-22] MEDS ORDERED: PRED20TA PO (10:46)
[2025-03-22] MEDS ORDERED: CEFD300C PO (10:47)
[2025-03-22] MEDS ORDERED: ZITHTAB PO (10:47)
[2025-03-22 11:28] VITALS: TEMP 96.7
== END 2025-03-22 11:30 | disposition home or self-care (01) ==
LOC: M ED 06:18 → EDBD 06:18 → M ED 11:30
DX: J18.9 Pneumonia, unspecified organism (principal); J44.9 Chronic obstructive pulmonary disease, unspecified; J45.909 Unspecified asthma, uncomplicated; R00.1 Bradycardia, unspecified; N28.1 Cyst of kidney, acquired; M47.816 Spondylosis without myelopathy or radiculopathy, lumbar region; K76.0 Fatty (change of) liver, not elsewhere classified; Z86.79 Personal history of other diseases of the circulatory system; Z88.0 Allergy status to penicillin; Z88.7 Allergy status to serum and vaccine; Z88.6 Allergy status to analgesic agent; Z91.048 Other nonmedicinal substance allergy status; Z79.01 Long term (current) use of anticoagulants; Z79.02 Long term (current) use of antithrombotics/antiplatelets; Z79.2 Long term (current) use of antibiotics; Z79.899 Other long term (current) drug therapy
CPT/HCPCS: 71045; 71275; 74177; 80048; 80076; 82550; 82553; 83605; 83880; 84484; 85025; 87486; 87581; 87633; 87798; 93005; 93041; 94760; 96374; 99285; J2405; Q9967

== ENCOUNTER → 2025-03-30 | Outpatient (CLI) | payer MEDICARE ==
[~2025-03-30] MED LIST changes: +ACET650T61 PO; +CEFD300C PO; +DOCU100C16 PO; +PRED20TA PO; +ZITHTAB PO
== END ==
LOC: M SOG 06:57
PROVIDERS: ATTEND Physician Assistant
DX: Z53.9 Procedure and treatment not carried out, unspecified reason (principal)

== ENCOUNTER → 2025-04-08 | Outpatient (CLI) | payer MEDICARE | LOC: M CLY 10:59 | PROVIDERS: ATTEND Nurse Practitioner Family | DX: J18.9 Pneumonia, unspecified organism (principal) ==

== ENCOUNTER → 2025-04-21 | Outpatient (REF) | payer MEDICARE ==
[2025-04-21 14:55] LABS: CALCIUM LEVEL 9.3 MG/DL (8.3-10.6); CARBON DIOXIDE LEVEL 25.0 MMOL/L (20-31); CHLORIDE LEVEL 94.0 MMOL/L (98-107); CREATININE FOR GFR 0.76 MG/DL (0.55-1.30); GLOMERULAR FILTRATION RATE 76.7 (>32); POTASSIUM SERUM 5.0 MMOL/L (3.5-5.1); SODIUM LEVEL 131.0 MMOL/L (136-145)
== END ==
LOC: M SFHCCLAY 12:20 → M LABWUC 12:20
PROVIDERS: ATTEND Nurse Practitioner Family
DX: I10 Essential (primary) hypertension (principal)

== ENCOUNTER → 2025-05-06 | Outpatient (REF) | payer MEDICARE ==
[2025-05-06 18:15] LABS: ALT/SGPT 15.0 U/L (7.0-40); AST/SGOT 17.0 U/L (<34); CALCIUM LEVEL 9.4 MG/DL (8.3-10.6); CARBON DIOXIDE LEVEL 26.0 MMOL/L (20-31); CHLORIDE LEVEL 94.0 MMOL/L (98-107); CREATININE FOR GFR 0.79 MG/DL (0.55-1.30); GLOMERULAR FILTRATION RATE 73.3 (>32); POTASSIUM SERUM 4.4 MMOL/L (3.5-5.1); SODIUM LEVEL 129.0 MMOL/L (136-145)
[2025-05-06 18:19] LABS: BASO # 0.0 10^3/uL (0.0-0.2); BASO % 0.3 % (0.0-1.0); EOS # 0.1 10^3/uL (0.0-0.5); EOS % 0.9 % (0.0-3.0); LYMPH # 1.8 10^3/uL (1.5-5.0); LYMPH % 19.4 % (24.0-44.0); MONO # 0.7 10^3/uL (0.0-0.8); MONO % 7.7 % (2.0-8.0); NEUTROPHILS # 6.5 10^3/uL (1.5-8.5); NEUTROPHILS % 71.3 % (36.0-66.0); PLATELET COUNT, AUTOMATED 323 10^3/uL (150-450)
[2025-05-06 19:12] LABS: APPEARANCE, URINE CLEAR (CLEAR); BACTERIA, URINE AUTO NEGATIVE (NEGATIVE); BILIRUBIN, URINE AUTO NEGATIVE (NEGATIVE); BLOOD, URINE BLOOD NEGATIVE (NEGATIVE); GLUCOSE, URINE (UA) AUTO NEGATIVE (NEGATIVE); KETONE, URINE AUTO NEGATIVE (NEGATIVE); LEUKOCYTE ESTERASE, URINE AUTO NEGATIVE (NEGATIVE); MUCUS, URINE SMALL (NEGATIVE); NITRITE, URINE AUTO NEGATIVE (NEGATIVE); PROTEIN, URINE AUTO NEGATIVE (NEGATIVE); RBC, URINE AUTO 1 /HPF (0-3); SPECIFIC GRAVITY URINE AUTO 1.015 (1.002-1.035); SQUAMOUS EPITHELIAL CELL UR AU 1 /HPF (0-6); UROBILINOGEN, URINE AUTO 0.2 mg/dL (0.0-2.0); WBC, URINE AUTO 1 /HPF (0-3)
== END ==
LOC: M SFHCCLAY 11:16
PROVIDERS: ATTEND Nurse Practitioner Family
DX: R10.9 Unspecified abdominal pain (principal); R11.0 Nausea; R53.83 Other fatigue

== ENCOUNTER → 2025-05-10 | Outpatient (REF) | payer MEDICARE ==
[2025-05-10 18:45] LABS: CALCIUM LEVEL 8.9 MG/DL (8.3-10.6); CARBON DIOXIDE LEVEL 29.0 MMOL/L (20-31); CHLORIDE LEVEL 99.0 MMOL/L (98-107); CREATININE FOR GFR 0.8 MG/DL (0.55-1.30); GLOMERULAR FILTRATION RATE 72.2 (>32); POTASSIUM SERUM 4.5 MMOL/L (3.5-5.1); SODIUM LEVEL 132.0 MMOL/L (136-145)
== END ==
LOC: M SFHCCLAY 11:35
PROVIDERS: ATTEND Nurse Practitioner Family
DX: E87.1 Hypo-osmolality and hyponatremia (principal)

== ENCOUNTER → 2025-06-07 | Outpatient (CLI) | payer MEDICARE ==
[2025-06-07 15:02] LABS: BASO # 0.1 10^3/uL (0.0-0.2); BASO % 0.8 % (0.0-1.0); EOS # 0.2 10^3/uL (0.0-0.5); EOS % 2.7 % (0.0-3.0); LYMPH # 1.8 10^3/uL (1.5-5.0); LYMPH % 20.5 % (24.0-44.0); MONO # 0.9 10^3/uL (0.0-0.8); MONO % 10.7 % (2.0-8.0); NEUTROPHILS # 5.7 10^3/uL (1.5-8.5); NEUTROPHILS % 64.7 % (36.0-66.0); PLATELET COUNT, AUTOMATED 343 10^3/uL (150-450)
[2025-06-07 15:11] LABS: ALT/SGPT 14.0 U/L (7.0-40); AST/SGOT 17.0 U/L (<34); CALCIUM LEVEL 9.3 MG/DL (8.3-10.6); CARBON DIOXIDE LEVEL 26.0 MMOL/L (20-31); CHLORIDE LEVEL 100.0 MMOL/L (98-107); CREATININE FOR GFR 0.8 MG/DL (0.55-1.30); GLOMERULAR FILTRATION RATE 72.2 (>32); IRON (FE) 38.0 UG/DL (50-170); PERCENT SATURATION 11.6 % (13.2-45.0); POTASSIUM SERUM 4.6 MMOL/L (3.5-5.1); SODIUM LEVEL 136.0 MMOL/L (136-145)
== END ==
LOC: M WUC 12:07
PROVIDERS: ATTEND Nurse Practitioner Family
DX: D50.9 Iron deficiency anemia, unspecified (principal); E87.1 Hypo-osmolality and hyponatremia; I10 Essential (primary) hypertension

== ENCOUNTER 2025-06-21 10:34 | Observation (INO) | payer MEDICARE ==
[~2025-06-21] VITALS: Ht 160 cm; Wt 64.0 kg
[2025-06-21 11:24] LABS: BASO # 0.0 10^3/uL (0.0-0.2); BASO % 0.1 % (0.0-1.0); EOS # 0.0 10^3/uL (0.0-0.5); EOS % 0.1 % (0.0-3.0); LYMPH # 1.0 10^3/uL (1.5-5.0); LYMPH % 7.8 % (24.0-44.0); MONO # 0.8 10^3/uL (0.0-0.8); MONO % 6.2 % (2.0-8.0); NEUTROPHILS # 10.9 10^3/uL (1.5-8.5); NEUTROPHILS % 85.4 % (36.0-66.0); PLATELET COUNT, AUTOMATED 388 10^3/uL (150-450)
[2025-06-21] MEDS: ALBUTEROL SULFATE 2.5 MG/0.5 ML INH CONCENTRATE NEB SOLN INH ONE (11:33)
[2025-06-21] MEDS: IPRATROPIUM 0.5 MG/ALBUTEROL 2.5 MG INH SOL UD 3 ML NEB ONE (11:33)
[2025-06-21 11:36] LABS: INR 1.3
[2025-06-21 11:46] LABS: ALT/SGPT 17.0 U/L (7.0-40); AST/SGOT 18.0 U/L (<34); CALCIUM LEVEL 9.5 MG/DL (8.3-10.6); CARBON DIOXIDE LEVEL 25.0 MMOL/L (20-31); CHLORIDE LEVEL 101.0 MMOL/L (98-107); CK-MB VALUE MASS 4.3 NG/ML (<3.6); CREATININE FOR GFR 0.81 MG/DL (0.55-1.30); GLOMERULAR FILTRATION RATE 71.1 (>32); POTASSIUM SERUM 4.2 MMOL/L (3.5-5.1); SODIUM LEVEL 135.0 MMOL/L (136-145)
[2025-06-21] MEDS ORDERED: ISOVUE-370 76% 100 ML VIAL As Ordered ONE (11:50)
[2025-06-21 11:58] LABS: CPK CREATINE PHOSPHOKINASE 95.0 U/L (34-145); MB/CK RELATIVE INDEX 4.52 (< OR =4)
[2025-06-21] MEDS: METOPROLOL SUCC. 50 MG *XL* TAB PO ONE (12:47)
[2025-06-21] MEDS: APIXABAN 5 MG TAB PO ONE (12:47)
[2025-06-21] MEDS ORDERED: NITR100C3 PO (13:04)
[2025-06-21] MEDS ORDERED: NITROFURANTOIN 100 MG CAP PO ONE ×2 (13:05→13:10)
[2025-06-21] MEDS ORDERED: METO1TAB7 PO (13:18)
[2025-06-21] MEDS ORDERED: VALS1TAB66 PO (13:18)
[2025-06-21] MEDS ORDERED: DOCU250C7 PO (13:18)
[2025-06-21] MEDS ORDERED: AMLO1TAB24 PO (13:18)
[2025-06-21] MEDS ORDERED: HOME MED LIST COMPLETE! XX SCH (13:20)
[2025-06-21 13:26] LABS: CK-MB VALUE MASS 3.5 NG/ML (<3.6); CPK CREATINE PHOSPHOKINASE 92.0 U/L (34-145); MB/CK RELATIVE INDEX 3.8 (< OR =4)
[2025-06-21] MEDS ORDERED: ACETAMINOPHEN 650 MG ER TAB PO PRN (13:55)
[2025-06-21] MEDS ORDERED: IPRATROPIUM 0.5 MG/ALBUTEROL 2.5 MG INH SOL UD 3 ML NEB PRN (13:55)
[2025-06-21] MEDS ORDERED: FLUTICASONE PROPIONATE 0.05% NASAL SPRAY 16 GM NARES PRN (13:55)
[2025-06-21] MEDS: MAG SULF 1GM/100ML (MAG RUN) 1 GM in IV 1 EA IV SCH (14:54)
[2025-06-21 16:20] VITALS: BP 163/72; TEMP 97.6; O2SAT 98
[2025-06-21] MEDS: SPIRONOLACTONE 25 MG TAB PO SCH (16:22)
[2025-06-21] MEDS: IPRATROPIUM 0.5 MG/ALBUTEROL 2.5 MG INH SOL UD 3 ML NEB SCH (16:48)
[2025-06-21 17:00] VITALS: BP 148/65; O2SAT 97
[2025-06-21] MEDS: VALSARTAN 80MG TAB PO SCH (18:29)
[2025-06-21 20:00] VITALS: BP 146/66; TEMP 97.5; O2SAT 98
[2025-06-21] MEDS: DOCUSATE SODIUM 100 MG CAPSULE PO SCH (20:23)
[2025-06-21] MEDS: APIXABAN 5 MG TAB PO SCH (20:25)
[2025-06-21] MEDS: ATORVASTATIN 20 MG TAB PO SCH (20:26)
[2025-06-21] MEDS: LATANOPROST 0.005% OPHTH SOLN 2.5 ML OD SCH (20:26)
[2025-06-21] MEDS: amLODIPine 5 MG TAB PO SCH (20:26)
[2025-06-22] VITALS: BP 132/59; TEMP 97.4; O2SAT 97
[2025-06-22 04:00] VITALS: BP 127/79; TEMP 97.5; O2SAT 98
[2025-06-22 05:58] LABS: PLATELET COUNT, AUTOMATED 322 10^3/uL (150-450)
[2025-06-22 06:27] LABS: ALT/SGPT 12.0 U/L (7.0-40); AST/SGOT 14.0 U/L (<34); CALCIUM LEVEL 9.5 MG/DL (8.3-10.6); CARBON DIOXIDE LEVEL 22.0 MMOL/L (20-31); CHLORIDE LEVEL 104.0 MMOL/L (98-107); CREATININE FOR GFR 0.8 MG/DL (0.55-1.30); GLOMERULAR FILTRATION RATE 72.2 (>32); POTASSIUM SERUM 4.2 MMOL/L (3.5-5.1); SODIUM LEVEL 139.0 MMOL/L (136-145)
[2025-06-22 06:55] VITALS: BP 152/67; TEMP 97.8; O2SAT 97
[2025-06-22] MEDS ORDERED: VENTAER INH (07:43)
[2025-06-22] MEDS ORDERED: PRED10TA2 PO (07:43)
[2025-06-22] MEDS: OMEPRAZOLE 20MG CAP PO SCH (07:56)
[2025-06-22 07:57] VITALS: BP 152/67
[2025-06-22] MEDS: hydroCHLOROthiazide 25 MG TAB PO SCH (07:57)
[2025-06-22] MEDS ORDERED: METOPROLOL SUCC. 50 MG *XL* TAB PO SCH (12:00)
== END 2025-06-22 08:46 | disposition home or self-care (01) ==
LOC: M ED 10:34 → M ED INP 10:35 → M ICU 15:59
PROVIDERS: ADMIT Internal Medicine; ATTEND Internal Medicine
DX: J45.901 Unspecified asthma with (acute) exacerbation (principal); Z66 Do not resuscitate; B34.8 Other viral infections of unspecified site; I48.91 Unspecified atrial fibrillation; I10 Essential (primary) hypertension; I25.10 Atherosclerotic heart disease of native coronary artery without angina pectoris; Z95.5 Presence of coronary angioplasty implant and graft; K21.9 Gastro-esophageal reflux disease without esophagitis; J44.9 Chronic obstructive pulmonary disease, unspecified; M19.90 Unspecified osteoarthritis, unspecified site; R91.8 Other nonspecific abnormal finding of lung field; Z79.01 Long term (current) use of anticoagulants; Z79.899 Other long term (current) drug therapy; Z88.0 Allergy status to penicillin; Z88.6 Allergy status to analgesic agent; Z88.7 Allergy status to serum and vaccine; Z91.048 Other nonmedicinal substance allergy status
CPT/HCPCS: 36415; 71045; 71275; 80047; 80048; 80053; 80076; 82550; 82553; 83605; 83690; 83880; 84145; 84484; 85025; 85027; 85610; 87040; 87486; 87581; 87633; 87798; 93005; 93041; 94640; 96365; 96366; 96375; 96376; 99285; G0378; J2919; J3475; Q9967

== ENCOUNTER → 2025-08-13 | Outpatient (CLI) | payer MEDICARE ==
[~2025-08-13] MED LIST changes: +AMLO1TAB24 PO; +DOCU250C7 PO; +METO1TAB7 PO; +NITR100C3 PO; +PRED10TA2 PO; +VALS1TAB66 PO
[2025-08-13 13:45] LABS: ALT/SGPT 15.0 U/L (7.0-40); AST/SGOT 19.0 U/L (<34); CALCIUM LEVEL 9.0 MG/DL (8.3-10.6); CARBON DIOXIDE LEVEL 26.0 MMOL/L (20-31); CHLORIDE LEVEL 102.0 MMOL/L (98-107); CHOLESTEROL LEVEL 119.0 MG/DL (<200); CHOLESTEROL RISK RATIO 2.05 (<5); CREATININE FOR GFR 0.93 MG/DL (0.55-1.30); GLOMERULAR FILTRATION RATE 60.2 (>32); LDL CHOLESTEROL 38.8 MG/DL (<100); NON-HDL-C 61.2 MG/DL; POTASSIUM SERUM 4.6 MMOL/L (3.5-5.1); SODIUM LEVEL 137.0 MMOL/L (136-145); TRIGLYCERIDES LEVEL 112.0 MG/DL (<150)
== END ==
LOC: M WUC 09:59
PROVIDERS: ATTEND Nurse Practitioner Family
DX: E87.1 Hypo-osmolality and hyponatremia (principal); I10 Essential (primary) hypertension